=== PATIENT | female | born 1995 | race Caucasian/White ===

== ENCOUNTER → 2017-11-22 | Outpatient (CLI) | payer OTHER ==
[~2017-11-22] MED LIST: SINCALIDE INJ 1.8 MCG in SODIUM CHLORIDE 0.9% 100ML 100 ML IV ONE
--- NOTE | 2017-11-22 15:44 | DIAGNOSTIC IMAGING REPORT ---
NUCLEAR MEDICINE HEPATOBILIARY SCAN WITH EJECTION FRACTION HISTORY: EPIGASTRIC PAIN AND NAUSEA COMPARISON: None. TECHNIQUE: Immediately following the intravenous administration of 5.5 mCi Tc-99m Choletec, dynamic anterior abdominal imaging pre/post 1 mcg of Kinevac was performed. FINDINGS: Uniform hepatic tracer accumulation is shown. Prompt intrahepatic biliary excretion is seen. The gallbladder, common bile duct, and small bowel are all visualized by 45 minutes. This appearance represents the normal sequence of biliary excretion. The gall bladder ejection fraction following administration of Kinevac was 32% (normal >35%). IMPRESSION: 1. No evidence for cystic duct obstruction. 2. Gallbladder ejection fraction calculated to be 42 %. Electronically signed by: Lalo Manning M.D. 11/22/2017 3:42 PM Dictated Date/Time: 11/22/2017 3:41 PM
== END | disposition home or self-care (01) ==
LOC: C.NUCL 12:50
PROVIDERS: ATTEND Internal Medicine Gastroenterology
DX: R10.13 Epigastric pain (principal); R11.0 Nausea

== ENCOUNTER 2021-08-11 04:45 | Inpatient (IN) ==
[2021-08-11] MEDS ORDERED: diphenhydrAMINE 50 MG/ML VIAL IV STA (05:07)
[2021-08-11] MEDS ORDERED: KETOROLAC TROMETHAMINE 15 MG/ML VIAL IV STA (05:07)
[2021-08-11] MEDS ORDERED: PROCHLORPERAZINE 1 ML IV ONE (05:07)
--- NOTE | 2021-08-11 05:14 | Emergency Department Note ---
History of Present Illness General Chief complaint: Vomiting Stated complaint: VOMITING Time Seen by Provider: 08/11/21 04:56 History of Present Illness This is a 25-year-old female with a history significant for that of cyclic vomiting syndrome that presents to the emergency department via private vehicle with complaints of "vomiting". The patient notes that this is her fifth ER visit in the past 1 to 2 weeks. She was seen 3 times at [place] [facility] emergency department being this past Sunday, Sunday and Sunday followed by an ED visit here yesterday and now again today. She states that she has tried her at home medications without relief. She denies any fevers, chills or diarrhea. No constipation. No blood in the vomit. No blood in the stool. The patient states that she has had similar symptoms intermittently for the past 3 years however over the past week and a half have seemed to have worsened. Patient does note that she has had a full work-up to include CT scan of the abdomen and pelvis at [facility]. After she was discharged from here yesterday she was feeling much better however was not able to tolerate any p.o. food or fluids at home and presented here again for further evaluation and management. In addition to the vomiting patient also notes some epigastric abdominal discomfort that worsens after she vomits. No chest pain or shortness of breath. Home Medications Medication Instructions Recorded Confirmed Type cholecalciferol (vitamin D3) 50 50 mcg PO DAILY #90 cap 10/12/20 08/11/21 Rx mcg (2,000 unit) capsule mecobalamin (vitamin B12) 1,000 1,000 mcg PO DAILY #90 tab 10/12/20 08/11/21 Rx mcg chewable tablet promethazine 25 mg rectal 25 mg MO Q8H PRN #12 ea 12/16/20 08/11/21 Rx suppository levothyroxine 50 mcg tablet 50 mcg PO DAILY #30 tab 05/11/21 08/11/21 Rx dicyclomine 20 mg tablet 20 mg PO DAILY PRN 08/10/21 08/11/21 History famotidine 20 mg tablet 20 mg PO DAILY 08/10/21 08/11/21 History lorazepam 1 mg tablet 1 mg PO TID PRN #6 tab 08/10/21 08/11/21 Rx ondansetron 4 mg disintegrating 4 mg PO Q6H PRN #20 tab 08/10/21 08/11/21 Rx tablet prochlorperazine maleate 5 mg 5 mg PO DAILY PRN 08/10/21 08/11/21 History tablet Allergies Allergy/AdvReac Type Severity Reaction Status Date / Time Sulfa (Sulfonamide Allergy Unknown UNKNOWN Verified 08/11/21 07:25 Antibiotics) Past Med/Surg History Medical History Headache Nausea and vomiting Vaginal discharge Surgical History H/O oral surgery Family History Grandfather (Paternal) Colorectal cancer Father Hypertension Thyroid cancer Stroke Grandmother (Maternal) Diabetes Other Breast cancer Denies family history of Ovarian cancer Prostate cancer Myocardial infarction Social History Smoking Status: Never smoker Tobacco Type: E-cigarettes / Vaping Cigarettes Per Day: 1 pack every 3days; Hx Alcohol Use: Yes Hx Substance Use: Yes Last Used Substance: Days (ago) Last Used Substance Other:: 3 weeks ago Preferred Language: Mauritanian Communication Ability: Effective Logistics And Planning Manager Required: No Beliefs That Will Affect Care: None marital status: Single Current Living Situation: Alone current occupational status: employed How many Children do You have: 0 Feels Safe at Home: No Safety Concerns: Feels Safe At This Time Dental Care, Regularly: Yes Physical Activity Frequency: 1-2 Times per Week Seatbelt Use: always Sunscreen Use: Yes Review of Systems A total of 10 systems reviewed and were otherwise negative Physical Exam Vital Signs Vital Signs - 24 hr 08/11/21 04:50 08/11/21 05:53 08/11/21 06:21 Temperature 37 C 37.3 C Temperature Source Temporal Artery Scan Oral Pulse Rate 93 H Pulse Rate [Finger] 78 82 Respiratory Rate 18 20 18 Respiratory Effort / Characteristics Non-Labored Spontaneous Non-Labored Spontaneous Respiratory Depth Shallow Normal Normal Blood Pressure 165/95 H Blood Pressure [Left Arm] 150/78 H 156/89 H Blood Pressure Mean 118 Blood Pressure Mean [Left Arm] 102 111 Pulse Oximetry 97 98 97 Oxygen Delivery Method Room Air Room Air Room Air Sepsis Recent Fever Within 48 Hours No Sepsis New/Unexplained Change in Mental Status No Sepsis Action Taken by Nursing No Action Required 08/11/21 08:38 08/11/21 08:42 Temperature Temperature Source Pulse Rate Pulse Rate [Finger] 82 81 Respiratory Rate 16 18 Respiratory Effort / Characteristics Non-Labored Respiratory Depth Normal Normal Blood Pressure Blood Pressure [Left Arm] 152/82 H 110/71 Blood Pressure Mean Blood Pressure Mean [Left Arm] 105 84 Pulse Oximetry 96 99 Oxygen Delivery Method Room Air Room Air Sepsis Recent Fever Within 48 Hours Sepsis New/Unexplained Change in Mental Status Sepsis Action Taken by Nursing VITAL SIGNS - Vital signs and nursing notes were reviewed. Stable and afebrile. GENERAL -25-year-old female appearing her stated age who is in no acute distress but appears to be tired. Communicates well with provider and answers questions appropriately. SKIN - Without rashes. No meningeal or petechial rash. HEAD - NC/AT. EYES - Sclera anicteric. EARS - No deformities of external structures noted on gross examination bilaterally. NOSE - Midline and without cyanosis. No epistaxis or purulent drainage noted. Septum midline without deviation or septal hematoma noted. MOUTH/OROPHARYNX - Without perioral cyanosis. NECK - Neck with FROM. No nuchal rigidity. LUNGS - Chest wall symmetric without accessory muscle use, intercostals retractions, or central cyanosis. Normal vesicular breath sounds CTA B/L. No wheezes, rales, or rhonchi appreciated. CARDIAC - RRR with S1/S2. No murmur, rubs, or gallops appreciated. ABDOMEN - Abdominal contour normal without pulsations or visible masses. BS normoactive all four quadrants. No tenderness, palpable masses, hepatosplenomega ly, or ascites noted. EXTREMITIES - No clubbing or peripheral cyanosis. +5/5 strength noted in UE/LE bilaterally. NEUROLOGIC - Cranial nerves II through XII grossly intact. PSYCH - A&O, and cooperates fully with examiner. Pt is very pleasant and interacts well with examiner. Course Administered Medications Cyanocobalamin (Cyanocobalamin 500 Mcg Tablet (Vitamin B-12)) 1,000 mcg PO DAILY VÍCTOR Stop: 09/10/21 11:29 Last Admin: 08/11/21 15:04 Dose: Not Given Documented by: [id number] Dicyclomine HCl (Dicyclomine Hcl 20 Mg Tab) 20 mg PO DAILY PRN PRN Reason: Abdominal Discomfort Stop: 09/10/21 11:08 Last Admin: 08/11/21 12:33 Dose: 20 mg Documented by: [id number] Enoxaparin Sodium (Enoxaparin Inj 40 Mg/0.4 Ml Syr) 40 mg SQ QAM [facility] Stop: 09/10/21 11:29 Last Admin: 08/11/21 15:02 Dose: 40 mg Documented by: [id number] Potassium Chloride 10 meq/ (Sodium Chloride) 1,005 mls @ 100 mls/hr IV .Q10H3M [facility] Stop: 09/10/21 08:59 Last Admin: 08/11/21 18:35 Dose: 100 mls/hr Documented by: [id number] Infusion: 08/11/21 18:35 Dose: 100 mls/hr Documented by: [id number] Admin: 08/11/21 09:35 Dose: 100 mls/hr Documented by: [id number] Prochlorperazine 5 mg/ Syringe 5 mls @ 5 mls/min IV Q6H PRN PRN Reason: Nausea And Vomiting Stop: 09/10/21 14:42 Last Admin: 08/11/21 16:24 Dose: 5 mls/min Documented by: [id number] Famotidine 20 mg/ Syringe 5 mls @ 2.5 mls/min IV BID [facility] Stop: 09/10/21 20:59 Last Admin: 08/11/21 20:56 Dose: 2.5 mls/min Documented by: [id number] Acetaminophen (Ofirmev) 1,000 mg in 100 mls @ 400 mls/hr IV Q8H PRN PRN Reason: Pain Stop: 08/14/21 16:36 Last Infusion: 08/11/21 17:06 Dose: 0 mls/hr Documented by: [id number] Admin: 08/11/21 16:51 Dose: 400 mls/hr Documented by: [id number] Ketorolac Tromethamine (Ketorolac Tromethamine 15 Mg/Ml Vial) 15 mg IV Q6H PRN PRN Reason: Pain Stop: 08/16/21 14:42 Last Admin: 08/11/21 15:01 Dose: 15 mg Documented by: [id number] Levothyroxine Sodium (Levothyroxine Sodium 50 Mcg Tablet) 50 mcg PO DAILYBB [facility] Stop: 09/10/21 11:08 Last Admin: 08/11/21 15:04 Dose: Not Given Documented by: [id number] Lorazepam (Lorazepam 1 Mg Tab) 1 mg PO TID PRN PRN Reason: anxiety Stop: 09/10/21 11:16 Last Admin: 08/11/21 19:32 Dose: 1 mg Documented by: [id number] Ondansetron HCl (Ondansetron Inj 2 Mg/Ml 2 Ml Vial) 4 mg IV Q6H PRN PRN Reason: Nausea And Vomiting Stop: 09/10/21 11:08 Last Admin: 08/11/21 19:32 Dose: 4 mg Documented by: [id number] Admin: 08/11/21 11:51 Dose: 4 mg Documented by: [id number] Vitamin D (Cholecalciferol 1,000 Units 25 Mcg Tab) 2,000 units PO DAILY [facility] Stop: 09/10/21 11:29 Last Admin: 08/11/21 15:04 Dose: Not Given Documented by: [id number] Discontinued Medications Al Hydrox/Mg Hydrox/Simethicone (Gi Cocktail Ed Use) 1 dose PO ONE ONE Stop: 08/11/21 06:07 Last Admin: 08/11/21 06:14 Dose: 1 dose Documented by: [id number] Hydrox/Mg Hydrox/Simethicone (Aluminum/Magnesium Susp 30 Ml Udc) 15 ml PO NOW STA Stop: 08/11/21 14:43 Last Admin: 08/11/21 14:57 Dose: 15 ml Documented by: [id number] Diphenhydramine HCl (Diphenhydramine 50 Mg/Ml Vial) 25 mg IV NOW STA Stop: 08/11/21 05:08 Last Admin: 08/11/21 05:43 Dose: 25 mg Documented by: [id number] Famotidine (Famotidine 20 Mg Tab) 20 mg PO DAILY [facility] Stop: 09/10/21 11:08 Last Admin: 08/11/21 14:50 Dose: Not Given Documented by: [id number] Prochlorperazine (Compazine) 1 mls @ 1 mls/min IV ONE ONE Stop: 08/11/21 05:08 Last Admin: 08/11/21 05:45 Dose: 1 mls/min Documented by: [id number] Sodium Chloride (Nss 1000ml) 1,000 mls @ 999 mls/hr IV .Q1H1M [facility] Stop: 08/11/21 06:15 Last Infusion: 08/11/21 06:55 Dose: 0 mls/hr Documented by: [id number] Admin: 08/11/21 05:48 Dose: 999 mls/hr Documented by: [id number] Famotidine (Pepcid 20mg Iv Push) 20 mg in 5 mls @ 2.5 mls/min IV NOW STA Stop: 08/11/21 06:07 Last Admin: 08/11/21 06:13 Dose: 2.5 mls/min Documented by: [id number] Potassium Chloride (K Kareem / Wtr) 10 meq in 100 mls @ 100 mls/hr IV Q1H [facility] Stop: 08/11/21 09:14 Last Infusion: 08/11/21 11:50 Dose: 0 mls/hr Documented by: [id number] Admin: 08/11/21 09:41 Dose: 100 mls/hr Documented by: [id number] Infusion: 08/11/21 09:29 Dose: 100 mls/hr Documented by: [id number] Admin: 08/11/21 08:29 Dose: 100 mls/hr Documented by: [id number] Potassium Chloride (K Kareem / Wtr) 10 meq in 100 mls @ 100 mls/hr IV ONE ONE Stop: 08/11/21 09:49 Last Infusion: 08/11/21 12:00 Dose: 0 mls/hr Documented by: [id number] Admin: 08/11/21 10:49 Dose: 100 mls/hr Documented by: [id number] Famotidine 20 mg/ Syringe 5 mls @ 2.5 mls/min IV ONE ONE Stop: 08/11/21 15:01 Last Admin: 08/11/21 16:01 Dose: 2.5 mls/min Documented by: [id number] Ketorolac Tromethamine (Ketorolac Tromethamine 15 Mg/Ml Vial) 15 mg IV NOW STA Stop: 08/11/21 05:08 Last Admin: 08/11/21 05:42 Dose: 15 mg Documented by: [id number] Lidocaine HCl (Lidocaine Viscous 2% 15 Ml Udc) 15 ml PO NOW ONE Stop: 08/11/21 14:43 Last Admin: 08/11/21 16:01 Dose: 15 ml Documented by: [id number] Ondansetron HCl (Ondansetron Inj 2 Mg/Ml 2 Ml Vial) 4 mg IV NOW STA Stop: 08/11/21 06:07 Last Admin: 08/11/21 06:17 Dose: 4 mg Documented by: [id number] Ondansetron HCl (Ondansetron Inj 2 Mg/Ml 2 Ml Vial) 4 mg IV ONE ONE Stop: 08/11/21 14:44 Last Admin: 08/11/21 14:57 Dose: 4 mg Documented by: [id number] Medical Decision Making Laboratory Data Result diagrams: 08/11/21 05:34 08/11/21 12:45 Lab Results 08/11/21 08/11/21 08/11/21 Range/Units 05:34 05:34 05:34 WBC 12.91 H (4.8-10.8) K/uL RBC 4.45 (4.2-5.4) M/uL Hgb 13.6 (12.0-16.0) g/dL Hct 40.6 (37-47) % MCV 91.2 (80-100) fL MCH 30.6 (25-34) pg MCHC 33.5 (32-36) g/dL RDW Std Deviation 42.3 (36.4-46.3) fL RDW Coeff of [place]re[place] 12.6 (11.5-14.5) % Plt Count 221 (130-400) K/uL MPV 12.5 H (7.4-10.4) fL Immature Gran % (Auto) 0.4 % Neut % (Auto) 82.0 % Lymph % (Auto) 9.4 % [place] % (Auto) 7.7 % Eos % (Auto) 0.3 % Baso % (Auto) 0.2 % Neut # (Auto) 10.58 H (1.4-6.5) K/uL Lymph # (Auto) 1.21 (1.2-3.4) K/uL [place] # (Auto) 1.00 H (0.11-0.59) K/uL Eos # (Auto) 0.04 (0-0.5) K/uL Baso # (Auto) 0.03 (0-0.2) K/uL Immature Gran # (Auto) 0.05 H (0.00-0.02) K/uL Sodium 141 (136-145) mmol/L Potassium 2.7 L D (3.5-5.1) mmol/L Chloride 113 H (98-107) mmol/L Carbon Dioxide 22 (21-32) mmol/L Anion Gap 6.0 (3-11) BUN 9 (7-18) mg/dl Creatinine 0.61 (0.6-1.2) mg/dl Est Cr Clr Drug Dosing 147.9 ml/min Est GFR ( Amer) 145.0 ml/min Est GFR (Non-Af Amer) 125.1 ml/min BUN/Creatinine Ratio 14.1 (10-20) Glucose 87 (70-99) mg/dl Calcium 7.0 L D (8.5-10.1) mg/dl Magnesium 1.8 (1.8-2.4) mg/dl Total Bilirubin 0.5 (0.2-1) mg/dl AST 20 (15-37) U/L ALT 37 (12-78) Alkaline Phosphatase 34 L (45-117) U/L Troponin I < 0.015 (0-0.045) ng/ml Total Protein 5.9 L D (6.4-8.2) gm/dl Albumin 2.8 L (3.4-5.0) gm/dl Globulin 3.1 (2.5-4.0) gm/dl Albumin/Globulin Ratio 0.9 (0.9-2) Lipase 91 (73-393) U/L TSH 2.800 (0.300-4.500) uIu/ml HCG, Qual Negative (Negative) SARS-CoV-2 (PCR) (Negative) Influenza Type A (PCR) (Neg) Influenza Type B (PCR) (Neg) RSV (RT-PCR) (Neg) 08/11/21 Range/Units 05:34 WBC (4.8-10.8) K/uL RBC (4.2-5.4) M/uL Hgb (12.0-16.0) g/dL Hct (37-47) % MCV (80-100) fL MCH (25-34) pg MCHC (32-36) g/dL RDW Std Deviation (36.4-46.3) fL RDW Coeff of [place] (11.5-14.5) % Plt Count (130-400) K/uL MPV (7.4-10.4) fL Immature Gran % (Auto) % Neut % (Auto) % Lymph % (Auto) % [place] % (Auto) % Eos % (Auto) % Baso % (Auto) % Neut # (Auto) (1.4-6.5) K/uL Lymph # (Auto) (1.2-3.4) K/uL [place] # (Auto) (0.11-0.59) K/uL Eos # (Auto) (0-0.5) K/uL Baso # (Auto) (0-0.2) K/uL Immature Gran # (Auto) (0.00-0.02) K/uL Sodium (136-145) mmol/L Potassium (3.5-5.1) mmol/L Chloride (98-107) mmol/L Carbon Dioxide (21-32) mmol/L Anion Gap (3-11) BUN (7-18) mg/dl Creatinine (0.6-1.2) mg/dl Est Cr Clr Drug Dosing ml/min Est GFR ( Amer) ml/min Est GFR (Non-Af Amer) ml/min BUN/Creatinine Ratio (10-20) Glucose (70-99) mg/dl Calcium (8.5-10.1) mg/dl Magnesium (1.8-2.4) mg/dl Total Bilirubin (0.2-1) mg/dl AST (15-37) U/L ALT (12-78) Alkaline Phosphatase (45-117) U/L Troponin I (0-0.045) ng/ml Total Protein (6.4-8.2) gm/dl Albumin (3.4-5.0) gm/dl Globulin (2.5-4.0) gm/dl Albumin/Globulin Ratio (0.9-2) Lipase (73-393) U/L TSH (0.300-4.500) uIu/ml HCG, Qual (Negative) SARS-CoV-2 (PCR) NEGATIVE (Negative) Influenza Type A (PCR) Negative (Neg) Influenza Type B (PCR) Negative (Neg) RSV (RT-PCR) Negative (Neg) MDM Narrative Patient was seen and evaluated as above in room C 12. Review was performed of nursing notes and vital signs. I did review pertinent previous visits and patient history. After obtaining a thorough history and physical examination the above work up was performed. Patient presents to us today with vomiting. Patient notes that she has a history of cyclic vomiting syndrome. On my examination the patient is tired in appearance but overall nontoxic. Vital signs stable. No active vomiting. Patient also notes that she does smoke marijuana, last of which was 3 weeks ago. She has been to the emergency department several times over the past week and a half. This is her fifth emergency department visit in a week and a half. Options of care were discussed with the patient. IV access was established. Labs were drawn. She was given IV fluids, antiemetics and IV Toradol for her pain. She is reevaluated with mild improvement. Pepcid and GI cocktail were then ordered. Patient's laboratory studies reveal mild leukocytosis 12.91. No anemia. There is hypokalemia which is interval change compared to previous. No other emergent metabolic disturbance. hCG negative. Troponin normal. Urinalysis is likely a contaminated sample. An EKG was also obtained noting the recent antiemetic use. EKG reveals normal sinus rhythm at a rate of 81 bpm. QTc 434. QRS 82. No ST elevation. No previous EKGs for comparison. With the patient having persistent nausea and vomiting despite several emergency department visits where she received antiemetics as well as antiemetics at home now with interval change with hypokalemia at 2.7 I do believe that further evaluation and management in the inpatient setting is warranted. I did order 20 meq of potassium chloride to be given at the normal rate. Case discussed with the hospitalist. Please refer to further documentation regarding her stay. Case was discussed with the attending physician. GCS: 15 In the evaluation and treatment of this patient the following differential diagn oses were entertained: UTI, pyelonephritis, perforation, pancreatitis, esophageal perforation, ulcer, cyclic vomiting syndrome, among others. Impression & Plan Vomiting, Hypokalemia Discharge Plan Visit Data Chief Complaint: Vomiting Stated Complaint: VOMITING ED Provider: Orin Holman ED Midlevel Provider: Ned Young Discharge Problem: Vomiting, Hypokalemia Patient Disposition: Admitted As Inpatient Condition: Good Discharge Instructions Interventions: ED Discharge Assessment Last Done: 08/11/21 11:28
[2021-08-11] MEDS ORDERED: SODIUM CHLORIDE 0.9% 1000ML 1,000 ML IV SCH (05:15)
[2021-08-11 05:51] LABS: Basophils # (auto) 0.03 K/uL (0-0.2); Basophils % (auto) 0.2 %; Eosinophils # (auto) 0.04 K/uL (0-0.5); Eosinophils % (auto) 0.3 %; Hematocrit (blood only) 40.6 % (37-47); Hemoglobin 13.6 g/dL (12.0-16.0); Immature Granulocytes # (auto) 0.05 K/uL (0.00-0.02); Immature Granulocytes % (auto) 0.4 %; Lymphocytes # (auto) 1.21 K/uL (1.2-3.4); Lymphocytes % (auto) 9.4 %; Mean Corpuscular Hemoglobin 30.6 pg (25-34); Mean Corpuscular Hgb Conc 33.5 g/dL (32-36); Mean Corpuscular Volume 91.2 fL (80-100); Mean Platelet Volume 12.5 fL (7.4-10.4); Monocytes % (auto) 7.7 %; Neutrophils # (auto) 10.58 K/uL (1.4-6.5); Platelet Count 221 K/uL (130-400); RDW Coefficient of Variation 12.6 % (11.5-14.5); RDW Standard Deviation 42.3 fL (36.4-46.3); Red Blood Count 4.45 M/uL (4.2-5.4); White Blood Count 12.91 K/uL (4.8-10.8)
[2021-08-11] MEDS ORDERED: ONDANSETRON INJ 2 MG/ML 2 ML VIAL IV STA (06:06)
[2021-08-11] MEDS ORDERED: FAMOTIDINE 20MG IV PUSH 20 MG/5 ML SYR IV STA (06:06)
[2021-08-11] MEDS ORDERED: GI COCKTAIL ED USE PO ONE (06:06)
[2021-08-11 06:14] LABS: Alanine Aminotransferase 37 (12-78); Albumin Level 2.8 gm/dl (3.4-5.0); Aspartate Aminotransferase 20 U/L (15-37); BUN Creatinine Ratio 14.1 (10-20); Blood Urea Nitrogen 9 mg/dl (7-18); Carbon Dioxide 22 mmol/L (21-32); Chloride 113 mmol/L (98-107); Creatinine Clr Calc Pharmacy 147.9 ml/min; Est GFR (Non-African American) 125.1 ml/min; Glucose 87 mg/dl (70-99); Lipase 91 U/L (73-393); Magnesium 1.8 mg/dl (1.8-2.4); Potassium 2.7 mmol/L (3.5-5.1); Sodium 141 mmol/L (136-145)
[2021-08-11 06:33] LABS: Influenza A virus by PCR Negative (Neg); Influenza B virus by PCR Negative (Neg); RSV by PCR Negative (Neg); SARS CoV2 RNA(COVID-19) InHosp NEGATIVE (Negative)
[2021-08-11 06:40] LABS: Albumin Globulin Ratio 0.9 (0.9-2); Alkaline Phosphatase 34 U/L (45-117); Bilirubin,Total 0.5 mg/dl (0.2-1); Globulin 3.1 gm/dl (2.5-4.0); Total Protein 5.9 gm/dl (6.4-8.2); Troponin I < 0.015 ng/ml (0-0.045)
[2021-08-11 06:48] LABS: Pregnancy Test, Serum Negative (Negative)
--- NOTE | 2021-08-11 08:11 | XRay Report ---
XR abdomen 2V w PA chest HISTORY: 25 years-old Female emesis, epigastric abd pain acute chest and abdominal pain with nausea and vomiting COMPARISON: None TECHNIQUE: PA view the chest with erect and supine views of the abdomen FINDINGS: The cardiomediastinal and hilar silhouettes are within normal limits. There is no pneumothorax, pleur al effusion, airspace consolidation or overt pulmonary edema. No acute fracture. No pneumatosis or pneumoperitoneum. Bowel gas pattern is nonobstructive. Pelvic basin phleboliths. No urolith or acute fracture. IMPRESSION: 1. No acute processes of the chest. 2. Nonobstructive bowel gas pattern. ACT 112: Negative or not required by law. The above report was generated using voice recognition software. It may contain grammatical, syntax o r spelling errors. Electronically signed by: Steven Yarbrough M.D. 08/11/2021 8:10 AM
[2021-08-11] MEDS: POTASSIUM CHLORIDE / WTR 10 MEQ/100 ML PLCT IV SCH ×2 (08:29→09:41)
--- NOTE | 2021-08-11 08:29 | History & Physical Report ---
Date of Service August 11, 2021 Assessment & Plan (1) Cyclic vomiting syndrome: Plan: Due to the patient's ongoing symptoms she will be admitted to the hospital. We will proceed as follows: At the present time her care will be mostly supportive at this time Antiemetics will be provided We will hydrate her with IV fluids We will allow clear liquids and subsequently advance her diet as she is able to tolerate At the present time I not feel any other diagnostic studies are warranted. She has had a CT scan recently at [facility] without any significant pathology. There are no other physical exam findings suggestive of additional pathology such as cholecystitis. Patient did report melanotic stools to me however I did talk with the treating emergency room clinician who saw her yesterday and the patient did undergo a rectal exam with fecal occult blood which was negative. Her melanotic appearing stools may be due to antacid she was reportedly taking. In addition, the patient may be suffering from an element of cannabis hyperemesis syndrome as she does smoke marijuana and her toxicology screen is positive. She has reported that her symptoms improve when taking a hot shower which goes along with this element of her current presentation. I have been encouraged her to abstain from marijuana use. Patient be a level 1 full code We will use Lovenox for DVT prevention (2) Hypokalemia: Plan: We will supplement her potassium Serial labs will be followed History of Present Illness Chief Complaint: Nausea and vomiting Primary Care Provider: Martha Tillman MD This is a 25-year-old female who presented to [facility] emergency department secondary to uncontrolled nausea vomiting. Patient notes that she was diagnosed with cyclic vomiting syndrome approximately 1 year ago. She said that her symptoms come and go in and on peritoneal fashion that she can sometimes go weeks or months at a time without any symptomatology. She notes that her current presentation began approximately 1 week ago with nausea vomiting and unable to keep any oral intake down. She denies any fevers, shakes, chills. She does note some generalized abdominal pain but admits it is worst in the epigastric area. She notes that the pain is better when she takes a hot shower and she says that the pain is worse when she throws up. She denies any hematemesis. The patient does report intermittent melanotic stools. Patient says that in regards to her cyclic vomiting syndrome she has had both an upper and lower endoscopy and to the best of her knowledge this was without any significant pathology. She says she is also had CT scans of her abdomen as well as gallbladder ultrasound also which were negative for any significant pathology. Prior to her presentation to [facility] she was most recently seen in the emergency department at [facility] on 08-23. During this visit she did have an obstruction series which was negative and she also had a CT scan of her abdomen and pelvis that showed findings that may have been consistent with enteritis but no other significant findings were noted. She denies any history abdominal surgeries or any diabetes. The patient does admit to marijuana use but reports that her most recent use was approximately 3 weeks ago. Because of her continued symptoms she presented to the emergency department. Patient was actually seen at [facility] on 08/10/2021 which was yesterday. During this visit CBC showed her white blood cell count was 12.1. Her hemoglobin, hematocrit, and platelet count were all noted to be normal. During this visit a chemistry profile showed her sodium, potassium, BUN, and creatinine were all within the normal range. She had a urinalysis that was not indicative of infection and a negative test. She did have a toxicology screen that was noted to be positive for marijuana. The patient's symptoms were controlled during that emergency room visit and she was discharged home. She represented to the emergency department as noted above secondary to continued symptoms. Today in the emergency department she did have labs and imaging which independent reviewed. She did have an obstruction series that showed a normal bowel gas pattern and there is no free air noted on chest x-ray. There is also no evidence of pneumonia. Labs today include a CBC her white blood cell count is 12.9. Hemoglobin, hematocrit, and platelet count were all within the normal range. Chemistry profile showed her sodium was normal. Her potassium is low at 2.7. Her BUN and creatinine were noted to be normal. Magnesium is noted to be normal. Cardiac enzymes were checked and were nonelevated. His total protein and albumin were both low at 5.9 and 2.8 respectively. Her lipase is within the normal range. She also had a test checked again today which was negative. A TSH was noted to be within normal range. A Covid test was performed today which was noted to be negative. She was also checked for influenza type a and B along with RSV all of which were negative. Due to her ongoing symptoms the clinicians in the emergency department felt admission was warranted. At the time of my interview the patient did not appear to be in any distress. Allergies Allergy/AdvReac Type Severity Reaction Status Date / Time Sulfa (Sulfonamide Allergy Unknown UNKNOWN Verified 08/11/21 07:25 Antibiotics) Home Medications Medication Instructions Recorded Confirmed Type cholecalciferol (vitamin D3) 50 50 mcg PO DAILY #90 cap 10/12/20 08/11/21 Rx mcg (2,000 unit) capsule mecobalamin (vitamin B12) 1,000 1,000 mcg PO DAILY #90 tab 10/12/20 08/11/21 Rx mcg chewable tablet promethazine 25 mg rectal 25 mg MO Q8H PRN #12 ea 12/16/20 08/11/21 Rx suppository levothyroxine 50 mcg tablet 50 mcg PO DAILY #30 tab 05/11/21 08/11/21 Rx dicyclomine 20 mg tablet 20 mg PO DAILY PRN 08/10/21 08/11/21 History famotidine 20 mg tablet 20 mg PO DAILY 08/10/21 08/11/21 History lorazepam 1 mg tablet 1 mg PO TID PRN #6 tab 08/10/21 08/11/21 Rx ondansetron 4 mg disintegrating 4 mg PO Q6H PRN #20 tab 08/10/21 08/11/21 Rx tablet prochlorperazine maleate 5 mg 5 mg PO DAILY PRN 08/10/21 08/11/21 History tablet Past Med/Surg History Medical History Headache Nausea and vomiting Vaginal discharge Surgical History H/O oral surgery Family History Grandfather (Paternal) Colorectal cancer Father Hypertension Thyroid cancer Stroke Grandmother (Maternal) Diabetes Other Breast cancer Denies family history of Ovarian cancer Prostate cancer Myocardial infarction Social History Smoking Status: Never smoker Tobacco Type: E-cigarettes / Vaping Cigarettes Per Day: 1 pack every 3days; Hx Alcohol Use: Yes Hx Substance Use: Yes Last Used Substance: Days (ago) Last Used Substance Other:: 3 weeks ago Preferred Language: Northern Irish Communication Ability: Effective Gravity Prospecting Operator Required: No Beliefs That Will Affect Care: None marital status: Single Current Living Situation: Alone current occupational status: employed How many Children do You have: 0 Feels Safe at Home: No Safety Concerns: Feels Safe At This Time Dental Care, Regularly: Yes Physical Activity Frequency: 1-2 Times per Week Seatbelt Use: always Sunscreen Use: Yes Review of Systems Constitutional: + fatigue and + malaise; no fever and no chills Eyes: no blind spots Ear, Nose, Mouth, Throat: no ear pain and no hearing loss Respiratory: no cough and no dyspnea Cardiovascular: no chest pain Gastrointestinal: + abdominal pain, + nausea, + vomiting and + melena; no diarrhea/loose stools Genitourinary: no dysuria Musculoskeletal: no back pain Integumentary: no rash Neurologic: no localized weakness Physical Exam Constitutional: well developed, well nourished and cooperative; no acute distress Eyes: PERRL, conjunctivae normal, anicteric sclerae Wears glasses ENMT: Ears: no hearing impairment and no external ear abnormality Mucous membranes of her oropharynx are moist Neck: trachea midline Respiratory: normal respiratory effort, lungs clear to auscultation Cardiovascular: Rate/Rhythm: regular rate and regular rhythm Gastrointestinal (Abdomen): Abdomen is soft and nondistended. Bowel sounds are present. There is no rebound tenderness or guarding. There is no pain with palpation. Andrea sign is negative. Musculoskeletal: Radial and pedal pulses are palpable. No gross orthopedic abnormalities. No calf tenderness Skin: normal turgor Neurologic: moves all extremities Psychiatric: Orientation: alert and oriented x 3 Affect: + flat affect Results & Data Results & Data ([facility]) Vital Signs (Past 12 Hours) Vital Signs Temp Pulse Pulse Resp BP BP Pulse Ox 08/11/21 06:21 37.3 C 82 18 156/89 H 97 08/11/21 05:53 78 20 150/78 H 98 08/11/21 04:50 37 C 93 H 18 165/95 H 97 Supervising Physician Co-Signing Physician Notes I personally examined the patient and verified all vance points of history and exam, discussed case, and agree with decision making with B Phoenix PAC Saw multiple times today, whenever I first saw her she was eating a little bit of sherbet, and noted this was the first and days her stomach and growled, but whenever I revisited later, unfortunately she had vomited again and was having more nausea. Notes she was diagnosed with cyclic vomiting by an ER physician in [place], off of pattern recognition given that apparently the physician's daughter also unfortunately suffers from the same thing. However, patient has smoked marijuana (intermittently not chronically or daily) since probably 15 years oldand she was first starting to have suffering with her GI distress around may be age 20 or 21. Vitals noted, in general she is awake and alert pleasant no distress. HEENT normocephalic atraumatic mucous membranes moist. Breathing unlabored no accessory muscle use good effort. Skin shows no rashes no pallor or icterus. Neuro without focal deficits. Skin shows no rashes no pallor or icterus. Intractable nausea and vomiting -Working diagnosis of cyclic vomiting syndrome -Discussed with patient cannabis hyperemesis cannot entirely be ruled out, and honestly that would be a favorable diagnosis compared to cyclic vomiting which is ill understood and does not necessarily have a specific remedyto that end, it has been several weeks to a month since she last smoked marijuana, and I discussed that it can sometimes take several months for cannabis hyperemesis to improve with abstinenceto that end, we agreed that she would completely refrain from marijuana until at least November 01 to be able to see if she has clinical improvement -Will also want to evaluate for abdominal trigger points, although in my experience this tends to lead to a lot of nausea and abdominal pain but not as much vomiting; did not examine for that today given that I have to push relatively hard and her stomach was somewhat tender -IV fluids, antiemetics, pain control, supportive care PG Care Time/CCT Total # of Minutes Spent Total Time Spent with Patient: Total time spent is greater than 50% in coordination of care (as documented) at patient's floor/unit and/or counseling patient: Coding Level of Care Code INT OBSERVATION CARE 70M LVL 3 Diagnoses Cyclic vomiting syndrome R11.15 Hypokalemia E87.6
[2021-08-11] MEDS ORDERED: POTASSIUM CHLORIDE / WTR 10 MEQ/100 ML PLCT IV ONE (08:50)
[2021-08-11] MEDS: POTASSIUM CHLORIDE 10 MEQ in SODIUM CHLORIDE 0.9% 1000ML 1,000 ML IV SCH ×2 (09:35→18:35)
[2021-08-11 10:59] LABS: Appearance Urine Turbid (Clear); Bacteria Urine Automated 2+ (Negative); Bilirubin Urine Negative (Negative); Blood Urine Negative (Negative); Color Urine Yellow; Epithelial Cell Urine Auto >30 /lpf (0-5); Glucose Urine UA Negative (Negative); Ketones Urine 1+ (Negative); Leukocyte Esterase Urine 1+ (Negative); Nitrite Urine Negative (Negative); Protein Urine Negative (Negative); Urobilinogen Urine Negative (Negative)
[2021-08-11] MEDS ORDERED: FAMOTIDINE 20 MG TAB PO SCH (11:09)
[2021-08-11] MEDS ORDERED: PROCHLORPERAZINE MALEATE 5 MG TAB PO PRN (11:09)
[2021-08-11 11:30] LABS: Amphetamines+Metham, Urine Neg (Neg); Barbiturates, Urine Pos (Neg); Benzodiazepine, Urine Neg (Neg); Cocaine, Urine Neg (Neg); MDMA (Ecstacy), Urine Neg (Neg); Methadone, Urine Neg (Neg); Opiate, Urine Neg (Neg); Phencyclidine, Urine Neg (Neg)
[2021-08-11] MEDS: ONDANSETRON INJ 2 MG/ML 2 ML VIAL IV PRN ×2 (11:51→19:32)
[2021-08-11] MEDS: DICYCLOMINE HCL 20 MG TAB PO PRN (12:33)
[2021-08-11 13:25] LABS: Calcium 8.7 mg/dl (8.5-10.1); Creatinine Clr Calc Pharmacy 106.1 ml/min; Est GFR (African American) 109.6 ml/min; Est GFR (Non-African American) 94.6 ml/min; Potassium 3.9 mmol/L (3.5-5.1)
[2021-08-11] MEDS ORDERED: LIDOCAINE VISCOUS 2% 15 ML UDC PO ONE (14:42)
[2021-08-11] MEDS ORDERED: ALUMINUM/MAGNESIUM SUSP 30 ML UDC PO STA (14:42)
[2021-08-11] MEDS ORDERED: ONDANSETRON INJ 2 MG/ML 2 ML VIAL IV ONE (14:43)
[2021-08-11] MEDS ORDERED: FAMOTIDINE 20 MG in SYRINGE 3 ML IV ONE (15:00)
[2021-08-11] MEDS: KETOROLAC TROMETHAMINE 15 MG/ML VIAL IV PRN ×2 (15:01→22:35)
[2021-08-11] MEDS: ENOXAPARIN INJ 40 MG/0.4 ML SYR SQ SCH (15:02)
[2021-08-11] MEDS: LEVOTHYROXINE SODIUM 50 MCG TABLET PO SCH (15:04)
[2021-08-11] MEDS: CYANOCOBALAMIN 500 MCG TABLET (VITAMIN B-12) PO SCH (15:04)
[2021-08-11] MEDS: CHOLECALCIFEROL 1,000 UNITS 25 MCG TAB PO SCH (15:04)
[2021-08-11] MEDS: PROCHLORPERAZINE 5 MG in SYRINGE 4 ML IV PRN (16:24)
[2021-08-11] MEDS: ACETAMINOPHEN 1,000 MG/100 ML VIAL IV PRN (16:51)
[2021-08-11] MEDS: LORazepam 1 MG TAB PO PRN (19:32)
[2021-08-11] MEDS: FAMOTIDINE 20 MG in SYRINGE 3 ML IV SCH (20:56)
--- NOTE | 2021-08-11 22:32 | Electrocardiogram Report ---
Test Reason : Blood Pressure : / mmHG Vent. Rate : 081 BPM Atrial Rate : 081 BPM P-R Int : 152 ms QRS Dur : 082 ms QT Int : 374 ms P-R-T Axes : 054 036 026 degrees QTc Int : 434 ms Normal sinus rhythm Cannot rule out Anterior infarct , age undetermined Abnormal ECG No previous ECGs available Confirmed by Yohan Villagomez ([id number]) on 08/11/2021 10:32:28 PM Referred By: REFERRED SELF Confirmed By:Yohan Villagomez
[2021-08-12] MEDS: POTASSIUM CHLORIDE 10 MEQ in SODIUM CHLORIDE 0.9% 1000ML 1,000 ML IV SCH ×2 (04:30→14:38)
[2021-08-12] MEDS: ONDANSETRON INJ 2 MG/ML 2 ML VIAL IV PRN ×2 (04:47→11:53)
[2021-08-12] MEDS: KETOROLAC TROMETHAMINE 15 MG/ML VIAL IV PRN ×2 (05:25→11:52)
[2021-08-12] MEDS: LEVOTHYROXINE SODIUM 50 MCG TABLET PO SCH (05:35)
[2021-08-12] MEDS: PROCHLORPERAZINE 5 MG in SYRINGE 4 ML IV PRN ×2 (05:59→12:37)
[2021-08-12] MEDS ORDERED: diphenhydrAMINE 50 MG/ML VIAL IV ONE (06:16)
[2021-08-12] MEDS: PROMETHAZINE HCL 6.25 MG in SODIUM CHLORIDE 0.9% 50 ML IV PRN (08:02)
[2021-08-12] MEDS: ACETAMINOPHEN 1,000 MG/100 ML VIAL IV PRN (09:01)
[2021-08-12] MEDS: CYANOCOBALAMIN 500 MCG TABLET (VITAMIN B-12) PO SCH (13:34)
[2021-08-12] MEDS: CHOLECALCIFEROL 1,000 UNITS 25 MCG TAB PO SCH (13:34)
[2021-08-12] MEDS: FAMOTIDINE 20 MG in SYRINGE 3 ML IV SCH ×2 (13:34→21:51)
[2021-08-12] MEDS: ENOXAPARIN INJ 40 MG/0.4 ML SYR SQ SCH (13:34)
[2021-08-12] MEDS ORDERED: ALUMINUM/MAGNESIUM SUSP 30 ML UDC PO STA (16:37)
--- NOTE | 2021-08-12 16:41 | Hospitalist Progress Note ---
Date of Service August 12, 2021 Assessment & Plan (1) Hypokalemia: Plan: We will supplement her potassium Serial labs will be followed (2) Intractable nausea and vomiting: Plan: Still fairly badcontinue supportive care IV fluids and symptom management -Has a working diagnosis of cyclic vomiting, although she notes that this was made based on pattern recognition from an ER physician whose daughter has cyclic vomiting; this certainly would be our working diagnosis, but by no means definitively proven -I do wonder about the potential for some elements of cannabis hyperemesispatient and I discussed this, the case for this would be that she did start smoking marijuana years prior to her symptom onset, the case against would be it does not sound like she smokes with a heavy degree of frequency. That said this can be difficult to rule outwe agreed that she should abstain from marijuana for several months, given that it can take quite a while for cannabis hyperemesis to resolve -She does have left upper abdominal wall trigger pointscertainly those can cause a somatic visceral reflex causing abdominal pain that mimics visceral abdominal pain; and definitely severe nausea, and not clear if they could cause the vomiting, but it certainly plausible. At any rate, given the trigger points are there and quite present, even if they are not the cause of her whole syndrome, they certainly are likely a "spinoff" problem keeping the nausea and abdominal pain worse --> Nausea control, pain control, IV fluids --> Outpatient follow-up with PCP, and GI (home once symptoms are tolerable/able to eat and drink) ---> Voltaren gel 4 times daily to area of trigger points, and referral to pain management to have ultrasound-guided injections as an outpatient DVT [facility] Admission and Anticipated Discharge Date Admission Date: August 11, 2021 Subjective Feeling nausea still a good bit. Has not been able to eat much. Vomited a few times. No other new complaints. Toradol actually help with the nausea too. Review of Systems Review of Systems: All systems reviewed & are unremarkable except as noted in HPI & below Physical Exam Physical Exam: Without focalWhenever I first saw her she was sleeping, even with a long discussion of the roommate she was still asleep. Later seeing her she appears very fatigued and mild distress due to nausea. HEENT normocephalic atraumatic mucous membranes moist. Breathing unlabored no accessory muscle use good effort. Skin shows no rashes no pallor or icterus. Abdomen shows a degree of right upper quadrant tenderness with a little bit of worsening with inspiration, although I would hesitate to call in a true Andrea sign. Left upper abdomen shows multiple discrete areas of myofascial nodularity consistent with trigger points that are quite tender. Neuro without focal deficits. Results & Data Results & Data ([facility]) Vital Signs (Past 12 Hours) Vital Signs Temp Pulse Resp BP Pulse Ox 08/12/21 15:43 98.8 F 85 14 131/77 95 08/12/21 07:25 98.4 F 84 14 167/94 H 98 PG Care Time/CCT Total # of Minutes Spent Total Time Spent with Patient: Total time spent is greater than 50% in coordination of care (as documented) at patient's floor/unit and/or counseling patient: Coding Level of Care Code 99950 Subseq Hosp Care Lvl 3 Diagnoses Hypokalemia E87.6 Intractable nausea and vomiting R11.2
[2021-08-12] MEDS ORDERED: LIDOCAINE VISCOUS 2% 15 ML UDC PO ONE (17:00)
[2021-08-12] MEDS: KETOROLAC TROMETHAMINE 15 MG/ML VIAL IV SCH ×3 (17:08→23:41)
[2021-08-12] MEDS: DICLOFENAC SOD 1% GEL 100 GM TUBE EXT SCH ×2 (17:08→21:49)
[2021-08-12] MEDS: ONDANSETRON INJ 2 MG/ML 2 ML VIAL IV SCH ×3 (17:08→23:42)
--- NOTE | 2021-08-12 22:06 | Ultrasound Report ---
US abdomen limited CLINICAL HISTORY: RUQ - nausea/vomiting, eval gallbladder TECHNIQUE: Multiple real-time sonographic images of the right upper quadrant were obtained. Comparison: None available at the time of this dictation. FINDINGS: The liver is diffusely homogenous with normal contour and echogenicity. No focal mass lesions are se en. No intrahepatic ductal dilatation is seen. No gallstones or sludge are identified within the gallbladder. The gallbladder wall is not thickened. There is no pericholecystic fluid present. A son ographic Andrea's sign was not elicited by the library circulation assistant. The common duct measures 0.5 cm in diam eter at the level of the hepatic artery. The visualized portions of the pancreas appear normal. The right kidney shows normal echogenicity, cortical thickness and renal contour. The right kidney sh ows no evidence of hydronephrosis or mass. Prominent renal pelvis is incidentally noted. No ascites or free fluid is seen in Schofield's pouch. IMPRESSION: No acute abnormalities and in particular no pericholecystic fluid, wall thickening, or Andrea's sign to suggest acute cholecystitis. ACT 112: Negative or not required by law. Electronically signed by: Milton Craig M.D. 08/12/2021 10:04 PM
[2021-08-13] MEDS: PROMETHAZINE HCL 6.25 MG in SODIUM CHLORIDE 0.9% 50 ML IV PRN (00:05)
[2021-08-13] MEDS: POTASSIUM CHLORIDE 10 MEQ in SODIUM CHLORIDE 0.9% 1000ML 1,000 ML IV SCH ×2 (03:10→13:12)
[2021-08-13] MEDS: PROCHLORPERAZINE 5 MG in SYRINGE 4 ML IV PRN (03:22)
[2021-08-13] MEDS: ACETAMINOPHEN 1,000 MG/100 ML VIAL IV PRN ×2 (03:28→18:37)
[2021-08-13] MEDS: KETOROLAC TROMETHAMINE 15 MG/ML VIAL IV SCH ×5 (05:07→22:37)
[2021-08-13] MEDS: ONDANSETRON INJ 2 MG/ML 2 ML VIAL IV SCH ×5 (05:07→22:37)
[2021-08-13] MEDS: LEVOTHYROXINE SODIUM 50 MCG TABLET PO SCH (05:40)
[2021-08-13 08:26] LABS: Amobarbital, Urine Conf NEGATIVE ng/mL (<100); Butalbital, Urine NEGATIVE ng/mL (<100); Marijuana Quant, GCMS Urine 2407 ng/mL (<5); Pentobarbital, Urine Conf NEGATIVE ng/mL (<100); Phenobarbital, Urine 576 ng/mL (<100); Secobarbital, Urine Conf NEGATIVE ng/mL (<100)
[2021-08-13] MEDS: DICLOFENAC SOD 1% GEL 100 GM TUBE EXT SCH ×4 (08:55→20:18)
[2021-08-13] MEDS: FAMOTIDINE 20 MG in SYRINGE 3 ML IV SCH (08:55)
[2021-08-13] MEDS: ENOXAPARIN INJ 40 MG/0.4 ML SYR SQ SCH (10:23)
[2021-08-13] MEDS: CYANOCOBALAMIN 500 MCG TABLET (VITAMIN B-12) PO SCH (12:15)
[2021-08-13] MEDS: CHOLECALCIFEROL 1,000 UNITS 25 MCG TAB PO SCH (12:15)
[2021-08-13] MEDS: DICYCLOMINE HCL 20 MG TAB PO PRN (14:15)
[2021-08-13] MEDS ORDERED: DOCUSATE SODIUM 100 MG CAP PO PRN (17:56)
--- NOTE | 2021-08-13 18:37 | Hospitalist Progress Note ---
Date of Service August 13, 2021 Assessment & Plan (1) Cyclic vomiting syndrome: Plan: Acute/episodic; improving; not at goal * IV Zofran 4 mg scheduled every 4 hours; Compazine 5 mg IV as needed; promethazine 6.25 mg IV as needed for hyperemesis * Advance to clear liquid diet, then regular diet, for lunch and dinner respectively. * IV Pepcid discontinued; switched IV Protonix 40 mg; replete potassium * Likely discharge in the morning pending successful trial of regular diet (2) Myofascial pain syndrome: Plan: Acute/chronic; improving; not at goal * Localized to the right upper quadrant, just below the right diaphragm. * Voltaren gel as needed for pain. (3) Hypokalemia: Plan: See above #1 Admission and Anticipated Discharge Date Admission Date: August 13, 2021 Supervising Physician Co-Signing Physician Notes I personally examined the patient and verified all vance points of history and exam, discussed case, and agree with decision making with Dr. Esparza with the following additions/exceptions: Patient reports feeling better today is feeling hungry, would like her diet advanced. Only has some abdominal pain with palpation which she thinks is musculoskeletal from vomiting previously. She reports that on her EGD done within the last year, that she was noted to have retained food. Her colonoscopy was normal. She has never had a gastric emptying study. She last smoked marijuana 6 weeks ago as per her report, however her urine drug screen still positive for marijuana as well as barbiturates. Vitals reviewed Gen: AAOx3, NAD HEENT: Anicteric sclerae, EOMI CV: RRR no mgr nl S1S2 Pulm: CTAB no wcr Abd: +BS soft NT ND no masses or hernias Ext: No edema, 2+ DP pulses Skin: No rashes, warm/dry Neuro: Full strength throughout This patient is a 25-year-old female with recurrent episodes of nausea/vomiting that occur every 3 to 4 months and seem to be related to stress. Is possible that she has cyclic vomiting syndrome, however would also entertain gastroparesis given retained food in stomach as per her report on EGD after fasting for many hours. Okay to advance diet slowly for the next 24 hours, DC IV fluids Discontinue promethazine as she is already getting Compazine -Recommend outpatient gastric emptying study -Recommended continued abstinence from marijuana Likely discharge to home tomorrow Subjective Patient is sleeping in bed comfortably this morning. She admits to some nausea, which she had after breakfast, but she denies vomiting. She denies trigger point pain at the moment. She would like to try a regular diet at lunch. Otherwise she has no concerns at this time. Review of Systems Review of Systems: All systems reviewed & are unremarkable except as noted in HPI & below Physical Exam Constitutional: WD/WN, vitals as above Eyes: PERRL, conjunctivae normal, anicteric sclerae Respiratory: normal respiratory effort, lungs clear to auscultation Cardiovascular: RRR, no murmur, no edema Gastrointestinal (Abdomen): normal bowel sounds, soft, nontender, no hepatosplenomegaly Mild tenderness in the upper right abdomen, just below the diaphragm. Results & Data Results & Data ([facility]) Vital Signs (Past 12 Hours) Vital Signs Temp Pulse Resp BP Pulse Ox 08/13/21 16:38 36.7 C 73 14 136/84 96 08/13/21 07:52 36.8 C 91 H 16 154/83 H 98 Resident Activity Tracking Resident Involvement: Resident Care Provided Care Provided: Adult Hospital Medicine
--- NOTE | 2021-08-13 23:12 | Billing Data ---
Date of Service August 13, 2021 Coding Level of Care Code 41800 Subseq Hosp Care Lvl 2
[2021-08-14] MEDS: LORazepam 1 MG TAB PO PRN (00:13)
[2021-08-14] MEDS: PROCHLORPERAZINE 5 MG in SYRINGE 4 ML IV PRN (00:13)
[2021-08-14] MEDS: ONDANSETRON INJ 2 MG/ML 2 ML VIAL IV SCH ×4 (05:03→22:13)
[2021-08-14] MEDS: KETOROLAC TROMETHAMINE 15 MG/ML VIAL IV PRN ×3 (05:03→18:27)
[2021-08-14] MEDS: LEVOTHYROXINE SODIUM 50 MCG TABLET PO SCH (05:38)
[2021-08-14 06:39] LABS: Basophils # (auto) 0.02 K/uL (0-0.2); Basophils % (auto) 0.2 %; Eosinophils # (auto) 0.09 K/uL (0-0.5); Eosinophils % (auto) 0.9 %; Hematocrit (blood only) 40.1 % (37-47); Hemoglobin 13.6 g/dL (12.0-16.0); Immature Granulocytes # (auto) 0.03 K/uL (0.00-0.02); Immature Granulocytes % (auto) 0.3 %; Lymphocytes # (auto) 1.26 K/uL (1.2-3.4); Lymphocytes % (auto) 13.1 %; Mean Corpuscular Hemoglobin 30.6 pg (25-34); Mean Corpuscular Hgb Conc 33.9 g/dL (32-36); Mean Corpuscular Volume 90.3 fL (80-100); Mean Platelet Volume 12.8 fL (7.4-10.4); Monocytes # (auto) 1.02 K/uL (0.11-0.59); Monocytes % (auto) 10.6 %; Neutrophils # (auto) 7.23 K/uL (1.4-6.5); Neutrophils % (auto) 74.9 %; Platelet Count 201 K/uL (130-400); RDW Coefficient of Variation 12.6 % (11.5-14.5); RDW Standard Deviation 41.6 fL (36.4-46.3); Red Blood Count 4.44 M/uL (4.2-5.4); White Blood Count 9.65 K/uL (4.8-10.8)
[2021-08-14 07:02] LABS: Albumin Level 3.7 gm/dl (3.4-5.0); BUN Creatinine Ratio 6.9 (10-20); Calcium 8.9 mg/dl (8.5-10.1); Creatinine Clr Calc Pharmacy 114.2 ml/min; Est GFR (African American) 119.7 ml/min; Est GFR (Non-African American) 103.3 ml/min; Potassium 3.6 mmol/L (3.5-5.1)
[2021-08-14 07:05] LABS: Bilirubin,Total 0.5 mg/dl (0.2-1); Globulin 3.6 gm/dl (2.5-4.0); Total Protein 7.3 gm/dl (6.4-8.2)
[2021-08-14] MEDS: ENOXAPARIN INJ 40 MG/0.4 ML SYR SQ SCH (08:40)
[2021-08-14] MEDS: DICLOFENAC SOD 1% GEL 100 GM TUBE EXT SCH ×4 (08:40→20:37)
[2021-08-14] MEDS: PANTOprazole 40 MG TAB PO SCH (08:41)
[2021-08-14] MEDS: CHOLECALCIFEROL 1,000 UNITS 25 MCG TAB PO SCH (08:41)
[2021-08-14] MEDS: CYANOCOBALAMIN 500 MCG TABLET (VITAMIN B-12) PO SCH (08:41)
--- NOTE | 2021-08-14 09:25 | Hospitalist Progress Note ---
Date of Service August 14, 2021 Assessment & Plan (1) Cyclic vomiting syndrome: Plan: Acute/episodic; improving; not at goal * IV Zofran 4 mg scheduled every 4 hours; Compazine 5 mg IV as needed * Clear liquid diet * IV Protonix 40 mg; replete potassium * Failed trial of lunch with nausea, vomiting on CLD; added IV Reglan 10 mg every 8 hours as needed; added capsaicin cream as needed for hyperemesis * Able to tolerate dinner (peaches) without emesis * Anticipate discharge tomorrow morning on Zofran 4 mg every 6 hours, Reglan p.o. 10 mg as needed DVT prophylaxis: Lovenox SQ 40 mg daily Dispo: Likely tomorrow (2) Myofascial pain syndrome: Plan: Acute/chronic; improving; not at goal * Localized to the right upper quadrant, just below diaphragm bilaterally * Voltaren gel as needed for pain. (3) Hypokalemia: Plan: See above #1 Admission and Anticipated Discharge Date Admission Date: August 13, 2021 Supervising Physician Co-Signing Physician Notes I personally examined the patient and verified all vance points of history and e xam, discussed case, and agree with decision making with Dr. Esparza with the following additions/exceptions: Patient had just eaten solid foods for lunch when I saw her and reported a return of nausea. Shortly after I walked into the room, she began vomiting again. I came back to see her and discussed trial of Reglan. She was still feeling nauseated with dinner so decision was made to keep her again overnight. Vitals reviewed Gen: AAOx3, NAD HEENT: Anicteric sclerae, EOMI CV: RRR no mgr nl S1S2 Pulm: CTAB no wcr Abd: +BS soft NT ND no masses or hernias Ext: No edema Skin: No rashes, warm/dry Neuro: Full strength throughout This patient is a 25-year-old female with recurrent episodes of nausea/vomiting that occur every 3 to 4 months and seem to be related to stress. Is possible that she has cyclic vomiting syndrome, however would also entertain gastroparesis given retained food in stomach as per her report on EGD after fasting for many hours. With continued vomiting after trying solid foods today, but previously tolerating clear liquids Continue regular diet as tolerated Added metoclopramide 10 mg IV every 8 hours as needed Continue Compazine but increase to 10 mg IV every 6 hours as needed -Recommend outpatient gastric emptying study -Recommended continued abstinence from marijuana Likely discharge to home tomorrow if tolerating p.o. Subjective Patient is seated in bed this morning, after having completed breakfast. She reports mild nausea but denies vomiting. She has yet to try the Zofran but it had helped with dinner so she is hopeful. She has no other complaints at this time. Review of Systems Review of Systems: All systems reviewed & are unremarkable except as noted in HPI & below Physical Exam Constitutional: WD/WN, vitals as above Eyes: PERRL, conjunctivae normal, anicteric sclerae Respiratory: normal respiratory effort, lungs clear to auscultation Cardiovascular: RRR, no murmur, no edema Gastrointestinal (Abdomen): normal bowel sounds, soft, nontender, no hepatosplenomegaly Results & Data Results & Data ([facility]) Vital Signs (Past 12 Hours) Vital Signs Temp Pulse Resp BP Pulse Ox 08/14/21 07:21 36.8 C 89 12 143/82 H 96 08/14/21 04:06 36.7 C 84 16 121/74 98 08/13/21 22:59 37 C 75 18 144/86 H 96 Laboratory Results 08/14/21 06:20 08/14/21 06:20 Resident Activity Tracking Resident Involvement: Resident Care Provided Care Provided: Adult Hospital Medicine
[2021-08-14] MEDS ORDERED: METOCLOPRAMIDE HCL INJ 5 MG/ML 2 ML VIAL IV ONE (12:50)
[2021-08-14] MEDS ORDERED: PROCHLORPERAZINE 10 MG in SYRINGE 4 ML IV PRN (12:50)
[2021-08-14] MEDS ORDERED: PROCHLORPERAZINE 10 MG in SYRINGE 8 ML IV PRN (13:30)
[2021-08-14] MEDS ORDERED: CAPSAICIN CR 0.075% 60 GM TUBE EXT PRN (17:57)
[2021-08-14] MEDS: METOCLOPRAMIDE HCL INJ 5 MG/ML 2 ML VIAL IV PRN (20:37)
--- NOTE | 2021-08-14 20:56 | Billing Data ---
Date of Service August 14, 2021 Coding Level of Care Code 14635 Subseq Hosp Care Lvl 2
[2021-08-15] MEDS: ONDANSETRON INJ 2 MG/ML 2 ML VIAL IV SCH ×2 (04:41→11:44)
[2021-08-15] MEDS: KETOROLAC TROMETHAMINE 15 MG/ML VIAL IV PRN (04:46)
[2021-08-15] MEDS: LEVOTHYROXINE SODIUM 50 MCG TABLET PO SCH (05:31)
[2021-08-15] MEDS ORDERED: ACETAMINOPHEN 325 MG TAB PO PRN (05:38)
[2021-08-15] MEDS: DICLOFENAC SOD 1% GEL 100 GM TUBE EXT SCH (07:38)
[2021-08-15] MEDS: CHOLECALCIFEROL 1,000 UNITS 25 MCG TAB PO SCH (07:38)
[2021-08-15] MEDS: ENOXAPARIN INJ 40 MG/0.4 ML SYR SQ SCH (07:38)
[2021-08-15] MEDS: PANTOprazole 40 MG TAB PO SCH (07:38)
[2021-08-15] MEDS: CYANOCOBALAMIN 500 MCG TABLET (VITAMIN B-12) PO SCH (07:38)
[2021-08-15] MEDS ORDERED: POTASSIUM CHLORIDE CRTAB 20 MEQ TABCR PO STA (08:21)
[2021-08-15] MEDS: METOCLOPRAMIDE HCL INJ 5 MG/ML 2 ML VIAL IV PRN (08:48)
--- NOTE | 2021-08-15 10:16 | Discharge Summary ---
Date of Service August 15, 2021 Admission HPI Per Admitting Provider This is a 25-year-old female who presented to [facility] emergency department secondary to uncontrolled nausea vomiting. Patient notes that she was diagnosed with cyclic vomiting syndrome approximately 1 year ago. She said that her symptoms come and go in and on peritoneal fashion that she can sometimes go weeks or months at a time without any symptomatology. She notes that her current presentation began approximately 1 week ago with nausea vomiting and unable to keep any oral intake down. She denies any fevers, shakes, chills. She does note some generalized abdominal pain but admits it is worst in the epigastric area. She notes that the pain is better when she takes a hot shower and she says that the pain is worse when she throws up. She denies any hematemesis. The patient does report intermittent melanotic stools. Patient says that in regards to her cyclic vomiting syndrome she has had both an upper and lower endoscopy and to the best of her knowledge this was without any significant pathology. She says she is also had CT scans of her abdomen as well as gallbladder ultrasound also which were negative for any significant pathology. Prior to her presentation to [facility] she was most recently seen in the emergency department at [facility] on 08-23. During this visit she did have an obstruction series which was negative and she also had a CT scan of her abdomen and pelvis that showed findings that may have been consistent with enteritis but no other significant findings were noted. She denies any history abdominal surgeries or any diabetes. The patient does admit to marijuana use but reports that her most recent use was approximately 3 weeks ago. Because of her continued symptoms she presented to the emergency department. Patient was actually seen at [facility] on 08/10/2021 which was yesterday. During this visit CBC showed her white blood cell count was 12.1. Her hemoglobin, hematocrit, and platelet count were all noted to be normal. During this visit a chemistry profile showed her sodium, potassium, BUN, and creatinine were all within the normal range. She had a urinalysis that was not indicative of infection and a negative test. She did have a toxicology screen that was noted to be positive for marijuana. The patient's symptoms were controlled during that emergency room visit and she was discharged home. She represented to the emergency department as noted above secondary to continued symptoms. Today in the emergency department she did have labs and imaging which independent reviewed. She did have an obstruction series that showed a normal bowel gas pattern and there is no free air noted on chest x-ray. There is also no evidence of pneumonia. Labs today include a CBC her white blood cell count is 12.9. Hemoglobin, hematocrit, and platelet count were all within the normal range. Chemistry profile showed her sodium was normal. Her potassium is low at 2.7. Her BUN and creatinine were noted to be normal. Magnesium is noted to be normal. Cardiac enzymes were checked and were nonelevated. His total protein and albumin were both low at 5.9 and 2.8 respectively. Her lipase is within the normal range. She also had a test checked again today which was negative. A TSH was noted to be within normal range. A Covid test was performed today which was noted to be negative. She was also checked for influenza type a and B along with RSV all of which were negative. Due to her ongoing symptoms the clinicians in the emergency department felt admission was warranted. At the time of my interview the patient did not appear to be in any distress. Admission Exam Per Admitting Provider Constitutional: well developed, well nourished and cooperative; no acute distress Eyes: PERRL, conjunctivae normal, anicteric sclerae Wears glasses ENMT: Ears: no hearing impairment and no external ear abnormality Mucous membranes of her oropharynx are moist Neck: trachea midline Respiratory: normal respiratory effort, lungs clear to auscultation Cardiovascular: Rate/Rhythm: regular rate and regular rhythm Gastrointestinal (Abdomen): Abdomen is soft and nondistended. Bowel sounds are present. There is no rebound tenderness or guarding. There is no pain with palpation. Andrea sign is negative. Musculoskeletal: Radial and pedal pulses are palpable. No gross orthopedic abnormalities. No calf tenderness Skin: normal turgor Neurologic: moves all extremities Psychiatric: Orientation: alert and oriented x 3 Affect: + flat affect Principal Diagnosis Cyclic vomiting syndrome Myofascial pain syndrome Discharge Exam Constitutional WD/WN, vitals as above Eyes PERRL, conjunctivae normal, anicteric sclerae Respiratory normal respiratory effort, lungs clear to auscultation Cardiovascular RRR, no murmur, no edema Gastrointestinal (Abdomen) normal bowel sounds, soft, nontender, no hepatosplenomegaly Musculoskeletal no cyanosis or clubbing, extremities motor strength 5/5 Discharge Data Allergies Allergy/AdvReac Type Severity Reaction Status Date / Time Sulfa (Sulfonamide Allergy Unknown UNKNOWN Verified 08/11/21 07:25 Antibiotics) Consultations 08/11/21 07:59 ED Decision to Admit Stat 08/12/21 18:33 Consult [facility] lead network engineer Routine Ordered Studies 08/12/21 16:41 US abdomen limited Routine Hospital Course (1) Cyclic vomiting syndrome: Patient w/ recently diagnosed hx of cyclic vomiting syndrome * Admitted and started on supportive management: IV Zofran 4 mg scheduled every 4 hours; Compazine 5 mg IV as needed; promethazine 6.25 mg IV as needed for hyperemesis * Clear liquid diet * IV Protonix 40 mg; repleted potassium as needed * 08/14: Failed trial of lunch with nausea, vomiting on full liquid diet; IV Reglan 10 mg added every 8 hours as needed (pt recounted episode of gastroparesis during her upper EGD); added capsaicin cream as needed for hyperemesis * 08/14: Able to tolerate dinner (peaches) without emesis * Patient tolerated breakfast w/o emesis but required Reglan. * Planned for d/c home on short course of Reglan 10 mg PO. * GI follow up already scheduled for Sunday * Elicited hx of anxiety this morning; recommended psych. outpt f/u for counselling for anxiety management ([facility]) DVT prophylaxis: Lovenox SQ 40 mg daily Dispo: Today (2) Myofascial pain syndrome: Stable * Localized to the right upper quadrant, just below diaphragm bilaterally * Voltaren gel as needed for pain. * Outpatient follow-up with pain management (3) Hypokalemia: Acute; stable * Repleted orally due to gastric losses; pt able to tolerate throughout Total Time Total Time Spent Total Time Spent (In Minutes): 20 Discharge Plan Discharge Items Patient Disposition: Home - Self-Care Reason For Visit: CYCLIC VOMITING Discharge Diagnosis: Cyclic vomiting syndrome Condition on Discharge: Good Activity: Per Instructions section Non-emergency contact: Primary Care Provider and [employer] Administrator Call non-emergency contact if: you have any medication questions and your symptoms worsen Follow-up/Referrals: Martha Tillman MD [Primary Care Provider] - Diet: Regular Addtl Attending Provider Instructions: Intractable nausea and vomiting -You carry a "working diagnosis" of cyclic vomiting syndromeas we discussed, this is a very ill understood (still very real) functional disorder of the GI tract that leads to bouts of intractable nausea and vomiting coming in somewhat random cycles -At the same time, we certainly want to look for any other causes for your nausea and vomiting that would be more manageable/more reversibleto that end I do wonder about cannabis hyperemesis (like we were talking the "backwards" reaction where instead of causing hunger and stimulating appetite, cannabis hits the brain in a backwards way causing intractable nausea and vomitingthis can sometimes take months of abstinence to resolve, so as we discussed, the only real way to trial this as a possibility is to completely abstain from marijuana until somewhere around November, and see how you doif the nausea/vomiting resolves, it would be prudent to never smoke again), and we also wonder about the impact of your abdominal wall trigger points (the trigger points may have come up secondary to feeling sick all the timefrequently they come up as a reaction to ongoing abdominal distress, or while less likely, they could actually be the "root cause"either way I think they are contributing to your symptoms now. They create funny nerve reflex that creates "phantom abdominal pain and nausea"and usually respond pretty well to trigger point injectionsto that end we have a referral underway for you to see pain management. Please check in again with your PCP to ensure that this is on the way. If not, have your PCP obtain one for you. In the meantime, use the Voltaren gel 4 times a day over that area. In my experience it does not take them away, but it often "makes a dent") Pending Studies at Discharge: No Stand-Alone Forms: My [facility], Smoking Cessation Medications and DC Order Prescriptions: New metoclopramide HCl [Reglan] 10 mg tablet 10 mg PO Q6H 7 Days Qty: 28 RF: 0 Continued levothyroxine 50 mcg tablet 50 mcg PO DAILY Qty: 30 RF: 2 mecobalamin (vitamin B12) 1,000 mcg tablet,chewable 1,000 mcg PO DAILY Qty: 90 RF: 3 cholecalciferol (vitamin D3) 50 mcg (2,000 unit) capsule 50 mcg PO DAILY Qty: 90 RF: 3 promethazine 25 mg suppository 25 mg MN Q8H PRN (Reason: nausea and vomiting) Qty: 12 RF: 0 prochlorperazine maleate 5 mg tablet 5 mg PO DAILY PRN (Reason: Nausea) RF: 0 famotidine 20 mg tablet 20 mg PO DAILY RF: 0 dicyclomine 20 mg tablet 20 mg PO DAILY PRN (Reason: Abdominal Discomfort) RF: 0 ondansetron 4 mg tablet,disintegrating 4 mg PO Q6H PRN (Reason: nausea and vomiting) Qty: 20 RF: 0 lorazepam 1 mg tablet 1 mg PO TID PRN (Reason: anxiety) Qty: 6 RF: 0 Discharge Orders: Discharge Order (Routine); Ordered 08/15/21 Ordered By: Catarino Santoyo/Other Patient Handouts: Self-Care for Vomiting and Diarrhea, Understanding Marijuana Abuse, Understanding Cyclic Vomiting Syndrome Admission Data Admit Date/Time: 08/13/21 15:36 Attending Provider: Alena Pryor Admit Provider: Jaciel Gray Primary Care Provider: Martha Tillman V. Other Providers: Milton Pineda Other Interventions: Discharge Summary Assessment (RN) Last Done: 08/15/21 12:08 Supervising Physician Co-Signing Physician Notes Resident Physician Supervision Note: I independently interviewed and examined the patient and verified the vance history and physical, reviewed labs and image studies and agree with resident Dr. Esparza findings and care plan. Resident Activity Tracking Resident Involvement: Resident Care Provided Care Provided: Adult Hospital Medicine
== END 2021-08-15 13:48 | disposition home or self-care (01) | DRG 395 ==
LOC: ED 04:45 → EDINP 04:45 → SUATTDRO 08:48 → 3N 11:28 → SUATTDRO 08-13 15:36
DX: U07.0 Vaping-related disorder; E87.6 Hypokalemia; Z88.2 Allergy status to sulfonamides; F17.210 Nicotine dependence, cigarettes, uncomplicated; R11.15 Cyclical vomiting syndrome unrelated to migraine; F17.290 Nicotine dependence, other tobacco product, uncomplicated; M79.18 Myalgia, other site

== ENCOUNTER 2021-11-25 09:51 | Observation (INO) ==
[2021-11-25] MEDS ORDERED: METOCLOPRAMIDE HCL INJ 5 MG/ML 2 ML VIAL IV STA (10:12)
[2021-11-25] MEDS ORDERED: SODIUM CHLORIDE 0.9% 1000ML 1,000 ML IV ONE ×2 (10:12→14:00)
[2021-11-25] MEDS ORDERED: diphenhydrAMINE 50 MG/ML VIAL IV STA (10:12)
[2021-11-25] MEDS ORDERED: FAMOTIDINE 20MG IV PUSH 20 MG/5 ML SYR IV STA (10:13)
[2021-11-25] MEDS ORDERED: KETOROLAC 30 MG/ML VIAL IV STA (10:19)
[2021-11-25 10:24] LABS: Basophils # (auto) 0.02 K/uL (0-0.2); Basophils % (auto) 0.1 %; Eosinophils # (auto) 0.03 K/uL (0-0.5); Eosinophils % (auto) 0.2 %; Hematocrit (blood only) 39.9 % (37-47); Hemoglobin 13.8 g/dL (12.0-16.0); Immature Granulocytes # (auto) 0.02 K/uL (0.00-0.02); Immature Granulocytes % (auto) 0.1 %; Lymphocytes # (auto) 1.11 K/uL (1.2-3.4); Lymphocytes % (auto) 7.6 %; Mean Corpuscular Hemoglobin 31.1 pg (25-34); Mean Corpuscular Hgb Conc 34.6 g/dL (32-36); Mean Corpuscular Volume 89.9 fL (80-100); Mean Platelet Volume 12.5 fL (7.4-10.4); Monocytes # (auto) 0.89 K/uL (0.11-0.59); Monocytes % (auto) 6.1 %; Neutrophils # (auto) 12.53 K/uL (1.4-6.5); Neutrophils % (auto) 85.9 %; Platelet Count 241 K/uL (130-400); RDW Coefficient of Variation 13.2 % (11.5-14.5); RDW Standard Deviation 43.4 fL (36.4-46.3); Red Blood Count 4.44 M/uL (4.2-5.4)
[2021-11-25 10:49] LABS: Albumin Globulin Ratio 1.5 (0.9-2); Albumin Level 4.8 gm/dl (3.4-5.0); BUN Creatinine Ratio 18.5 (10-20); Bilirubin,Total 0.7 mg/dl (0.2-1.0); Calcium 9.8 mg/dl (8.5-10.1); Creatinine Clr Calc Pharmacy 110.9 ml/min; Est GFR (African American) 115.4 ml/min; Est GFR (Non-African American) 99.5 ml/min; Globulin 3.2 gm/dl (2.5-4.0); Potassium 3.3 mmol/L (3.5-5.1)
[2021-11-25 10:56] LABS: Pregnancy Test, Urine Negative (Negative)
[2021-11-25 10:57] LABS: Appearance Urine Turbid (Clear); Bacteria Urine Automated 4+ (Negative); Blood Urine 3+ (Negative); Color Urine Red; Epithelial Cell Urine Auto >30 /lpf (0-5); Glucose Urine UA Negative (Negative); Ketones Urine 1+ (Negative); Leukocyte Esterase Urine 2+ (Negative); Nitrite Urine Positive (Negative); Specific Gravity Urine 1.028 (1.000-1.030); Urobilinogen Urine Negative (Negative); WBC Urine Automated >30 /hpf (0-5); pH Urine >= 9.0 (4.5-7.5)
--- NOTE | 2021-11-25 10:57 | Emergency Department Note ---
History of Present Illness General Chief complaint: Vomiting Stated complaint: VOMITING Time Seen by Provider: 11/25/21 10:10 History of Present Illness Maximum Pain Intensity: 9 This 26-year-old female patient presents to the emergency department today for evaluation of cyclic vomiting. The patient reports a history of the same. She states her symptoms are often associated with anxiety and she recently started a new job and feels that her anxiety and stress level has been elevated. The patient was seen here 2 days ago for the same symptoms. She was medicated with multiple rounds of IV antiemetics and analgesics and ultimately experienced improvement in her symptoms, was able to tolerate Powerade, and was able to go home. She states this morning, her symptoms flared up and she decided to come back to the emergency department for evaluation. She tried an oral Phenergan as well as Zofran, but notes she vomited them back up. She does have rectal suppositories of Phenergan, but states she did not take any of them. She is reporting generalized abdominal discomfort. No recent fever or illness. No blood in the emesis. No diarrhea or constipation. She rates her generalized abdominal pain 9/10 and describes it as burning and aching. Home Medications Medication Instructions Recorded Confirmed Type cholecalciferol (vitamin D3) 50 50 mcg PO DAILY #90 cap 10/12/20 11/25/21 Rx mcg (2,000 unit) capsule mecobalamin (vitamin B12) 1,000 1,000 mcg PO DAILY #90 tab 10/12/20 11/25/21 Rx mcg chewable tablet dicyclomine 20 mg tablet 20 mg PO DAILY PRN 08/10/21 11/25/21 History lorazepam 1 mg tablet 1 mg PO TID PRN #6 tab 08/10/21 11/25/21 Rx famotidine 20 mg tablet 20 mg PO DAILY PRN 09/26/21 11/25/21 History nortriptyline 10 mg capsule 10 mg PO DAILY PRN cap 09/26/21 11/25/21 History levothyroxine 50 mcg tablet 50 mcg PO DAILY #90 tab 10/14/21 11/25/21 Rx ondansetron 4 mg disintegrating 4 mg PO Q6H PRN #30 tab 11/08/21 11/25/21 Rx tablet promethazine 25 mg rectal 25 mg MO Q8H PRN #12 ea 11/08/21 11/25/21 Rx suppository Lactobacillus acidophilus 10 10,000 mmu cells PO DAILY 11/25/21 11/25/21 History billion cell capsule (Probiotic) acetaminophen 500 mg tablet 500 mg PO Q6H PRN 11/25/21 11/25/21 History (Tylenol Extra Strength) psyllium husk 3.4 gram/5.4 gram 1 tsp PO DAILY 11/25/21 11/25/21 History oral powder (Metamucil) Allergies Allergy/AdvReac Type Severity Reaction Status Date / Time Sulfa (Sulfonamide Allergy Unknown UNKNOWN Verified 11/25/21 10:46 Antibiotics) Past Med/Surg History Medical History Abdominal wall pain Anxiety disorder Cyclic vomiting syndrome Headache Hypokalemia Nausea and vomiting Screen for STD (sexually transmitted disease) Vaginal discharge Surgical History H/O oral surgery Family History Grandfather (Paternal) Colorectal cancer Father Hypertension Thyroid cancer Stroke Grandmother (Maternal) Diabetes Other Breast cancer Cyclic vomiting syndrome Denies family history of Ovarian cancer Prostate cancer Myocardial infarction Social History Smoking Status: Current every day smoker Tobacco Type: E-cigarettes / Vaping Cigarettes Per Day: 1 pack every 3days; Hx Alcohol Use: Yes Hx Substance Use: Yes Last Used Substance: Days (ago) Last Used Substance Other:: 3 weeks ago Preferred Language: Zimbabwean Communication Ability: Effective Visual Impairment: No Limitations Hearing Ability: Normal Sample Grinder Required: No Beliefs That Will Affect Care: None marital status: Single Current Living Situation: Alone current occupational status: employed current occupation: [employer] How many Children do You have: 0 Feels Safe at Home: Yes Dental Care, Regularly: Yes Physical Activity Frequency: 1-2 Times per Week Seatbelt Use: always Sunscreen Use: Yes Assistive Devices: None Review of Systems A total of 10 systems reviewed and were otherwise negative Physical Exam Vital Signs Vital Signs - 24 hr 11/25/21 09:58 11/25/21 10:48 11/25/21 10:51 Temperature 37.3 C Temperature Source Temporal Artery Scan Pulse Rate 79 73 Pulse Rate [Radial] 73 Pulse Rhythm [Radial] Pulse Strength [Radial] Respiratory Rate 18 20 20 Respiratory Effort / Characteristics Respiratory Depth Normal Respiratory Pattern Blood Pressure [Right Arm] Blood Pressure Mean [Right Arm] Blood Pressure Position [Right Arm] Pulse Oximetry 99 100 100 Oxygen Delivery Method Room Air Room Air Sepsis Recent Fever Within 48 Hours No Sepsis New/Unexplained Change in Mental Status No Sepsis Action Taken by Nursing No Action Required 11/25/21 14:16 Temperature Temperature Source Pulse Rate Pulse Rate [Radial] 75 Pulse Rhythm [Radial] Regular Pulse Strength [Radial] Normal Respiratory Rate 20 Respiratory Effort / Characteristics Non-Labored Spontaneous Respiratory Depth Normal Respiratory Pattern Regular Blood Pressure [Right Arm] 126/63 Blood Pressure Mean [Right Arm] 84 Blood Pressure Position [Right Arm] Sitting Pulse Oximetry 97 Oxygen Delivery Method Room Air Sepsis Recent Fever Within 48 Hours Sepsis New/Unexplained Change in Mental Status Sepsis Action Taken by Nursing VITALS: Vitals are noted on the nurse's note and reviewed by myself. Vital signs stable. Patient is actively retching throughout examination. GENERAL: This is a 26-year-old white female, in no acute distress, nondiaphoretic, well-developed well-nourished. SKIN: The skin was without rashes, erythema, edema, or bruising. There is no tenting of the skin. Capillary refill less than 2 seconds. HEAD: Normocephalic atraumatic. EYES: Conjunctivae without injection, sclerae without icterus. NECK: Supple without nuchal rigidity. No lymphadenopathy. No JVD. HEART: Regular rate and rhythm without murmurs gallops or rubs. LUNGS: Clear to auscultation bilaterally without wheezes, rales or rhonchi. No retractions or accessory muscle use. ABDOMEN: Positive bowel sounds x 4. Diffuse tenderness throughout the abdomen. Abdomen otherwise soft, without masses or organomegaly. Andrea sign negative. No guarding or rebound tenderness. MUSCULOSKELETAL: No muscle atrophy, erythema, or edema noted. Full range of motion without joint tenderness in all extremities. No tenderness to palpation. Normal gait. Strength 5/5 throughout. NEURO: Patient was alert and oriented to person place and time. No focal neurological deficits. Course Course The patient was seen and evaluated as above. Previous medical records reviewed. An order was placed for continuous cardiac monitoring. The monitor shows a norm al sinus rhythm at a rate of 75 bpm. IV access obtained, labs drawn. Patient medicated with IV fluids, Toradol, Pepcid, Reglan, Benadryl. Patient continuing to retch. She was medicated with IV droperidol. Labs reviewed by myself. Imaging performed and reviewed by myself and radiologist as noted. I discussed the findings with the patient at bedside. Patient is continuing to complain of severe pain and nausea. She was medicated with a second liter of IV fluids, second dose of droperidol, and acetaminophen. Patient was also medicated with Rocephin due to the UTI. The patient was again reassessed. She continues to complain of nausea and vomiting and states she has been unable to tolerate any p.o. fluids. Recommended admission, the patient was agreeable, noting she does not feel that she can go home given her current state. I discussed case with the operations research group manager. I discussed case with Dr. Villanueva. She did agree to see and evaluate the patient. We did discuss the use of capsaicin cream. This was ordered and applied. Administered Medications Potassium Chloride (K aKreem / Wtr) 10 meq in 100 mls @ 100 mls/hr IV Q1H VÍCTOR; Protocol Stop: 11/25/21 18:29 Last Admin: 11/25/21 16:42 Dose: 100 mls/hr Documented by: [id number] Discontinued Medications Capsaicin (Capsaicin Cr 0.075% 60 Gm Tube) 1 appln EXT NOW STA Stop: 11/25/21 15:14 Last Admin: 11/25/21 15:59 Dose: Not Given Documented by: [id number] Diphenhydramine HCl (Diphenhydramine 50 Mg/Ml Vial) 25 mg IV NOW STA Stop: 11/25/21 10:13 Last Admin: 11/25/21 10:26 Dose: 25 mg Documented by: [id number] Droperidol (Droperidol 5 Mg/2 Ml Vial) 0.625 mg IV ONE STA Stop: 11/25/21 11:27 Last Admin: 11/25/21 11:53 Dose: 0.625 mg Documented by: [id number] Droperidol (Droperidol 5 Mg/2 Ml Vial) 0.625 mg IV ONE STA Stop: 11/25/21 12:30 Last Admin: 11/25/21 12:44 Dose: 0.625 mg Documented by: [id number] Sodium Chloride (Nss 1000ml) 1,000 mls @ 999 mls/hr IV .Q1H1M ONE Stop: 11/25/21 11:12 Last Infusion: 11/25/21 11:37 Dose: 0 mls/hr Documented by: [id number] Admin: 11/25/21 10:26 Dose: 999 mls/hr Documented by: [id number] Famotidine (Pepcid 20mg Iv Push) 20 mg in 5 mls @ 2.5 mls/min IV NOW STA Stop: 11/25/21 10:14 Last Admin: 11/25/21 10:26 Dose: 2.5 mls/min Documented by: [id number] Ceftriaxone Sodium (Rocephin) 1,000 mg in 50 mls @ 100 mls/hr IV NOW STA Stop: 11/25/21 12:48 Last Infusion: 11/25/21 13:31 Dose: 0 mls/hr Documented by: [id number] Admin: 11/25/21 12:43 Dose: 100 mls/hr Documented by: [id number] Acetaminophen (Ofirmev) 1,000 mg in 100 mls @ 400 mls/hr IV NOW STA Stop: 11/25/21 14:14 Last Infusion: 11/25/21 14:57 Dose: 0 mls/hr Documented by: [id number] Admin: 11/25/21 14:16 Dose: 400 mls/hr Documented by: [id number] Sodium Chloride (Nss 1000ml) 1,000 mls @ 999 mls/hr IV .Q1H1M ONE Stop: 11/25/21 15:00 Last Infusion: 11/25/21 15:50 Dose: 0 mls/hr Documented by: [id number] Admin: 11/25/21 14:16 Dose: 999 mls/hr Documented by: [id number] Ketorolac Tromethamine (Ketorolac 30 Mg/Ml Vial) 30 mg IV NOW STA Stop: 11/25/21 10:20 Last Admin: 11/25/21 10:34 Dose: 30 mg Documented by: [id number] Metoclopramide HCl (Metoclopramide Hcl Inj 5 Mg/Ml 2 Ml Vial) 10 mg IV NOW STA Stop: 11/25/21 10:13 Last Admin: 11/25/21 10:26 Dose: 10 mg Documented by: [id number] Medical Decision Making Differential Diagnosis Marijuana abuse, cyclic vomiting, hyperemesis, gastroenteritis, food borne illness, infections, appendicitis, diverticulitis, inflammatory bowel disease, obstruction, GI bleed, biliary pathology, volvulus, as well as other pathologies. Medical Records Attestation: I reviewed the patient's medical records. Home Medications Current Medication List: was personally reviewed by me Laboratory Data Attestation: I reviewed the patient's lab results. Leukocytosis of 14,000. No anemia or thrombocytopenia. Renal, hepatic function and electrolytes without significant abnormality. Procalcitonin negative. Urinalysis concerning for infection. Urine test negative. Urine drug screen positive for marijuana. Result diagrams: 11/25/21 10:19 11/25/21 10:19 Lab Results 11/25/21 11/25/21 11/25/21 Range/Units 10:19 10:19 10:19 WBC 14.60 H (4.8-10.8) K/uL RBC 4.44 (4.2-5.4) M/uL Hgb 13.8 (12.0-16.0) g/dL Hct 39.9 (37-47) % MCV 89.9 (80-100) fL MCH 31.1 (25-34) pg MCHC 34.6 (32-36) g/dL RDW Std Deviation 43.4 (36.4-46.3) fL RDW Coeff of Nereida 13.2 (11.5-14.5) % Plt Count 241 (130-400) K/uL MPV 12.5 H (7.4-10.4) fL Immature Gran % (Auto) 0.1 % Neut % (Auto) 85.9 % Lymph % (Auto) 7.6 % Vilas % (Auto) 6.1 % Eos % (Auto) 0.2 % Baso % (Auto) 0.1 % Neut # (Auto) 12.53 H (1.4-6.5) K/uL Lymph # (Auto) 1.11 L (1.2-3.4) K/uL Vil[place] # (Auto) 0.89 H (0.11-0.59) K/uL Eos # (Auto) 0.03 (0-0.5) K/uL Baso # (Auto) 0.02 (0-0.2) K/uL Immature Gran # (Auto) 0.02 (0.00-0.02) K/uL Sodium 138 (136-145) mmol/L Potassium 3.3 L (3.5-5.1) mmol/L Chloride 102 (98-107) mmol/L Carbon Dioxide 22 (21-32) mmol/L Anion Gap 14 H (3-11) BUN 15 (6-23) mg/dl Creatinine 0.81 (0.6-1.2) mg/dl Est Cr Clr Drug Dosing 110.9 ml/min Est GFR ( Amer) 115.4 ml/min Est GFR (Non-Af Amer) 99.5 ml/min BUN/Creatinine Ratio 18.5 (10-20) Glucose 121 H (70-99(Fasting)) mg/dl Calcium 9.8 (8.5-10.1) mg/dl Total Bilirubin 0.7 (0.2-1.0) mg/dl AST 27 (13-39) U/L ALT 29 (7-52) U/L Alkaline Phosphatase 36 (34-104) U/L Total Protein 8.0 (6.0-8.3) gm/dl Albumin 4.8 (3.4-5.0) gm/dl Globulin 3.2 (2.5-4.0) gm/dl Albumin/Globulin Ratio 1.5 (0.9-2) Lipase 13 (11-82) U/L Procalcitonin < 0.05 (0-0.5) ng/ml Urine Color Urine Appearance (Clear) Urine pH (4.5-7.5) Ur Specific Gaston (1.000-1.030) Urine Protein (Negative) Urine Glucose (UA) (Negative) Urine Ketones (Negative) Urine Blood (Negative) Urine Nitrite (Negative) Urine Bilirubin (Negative) Urine Urobilinogen (Negative) Ur Leukocyte Esterase (Negative) Urine WBC (Auto) (0-5) /hpf Urine RBC (Auto) (0-4) /hpf U Hyaline Cast (Auto) (0-5) /lpf U Epithel Cells (Auto) (0-5) /lpf Urine Bacteria (Auto) (Negative) Amorphous Sediment (None Prsent) Urine Yeast Urine Test (Negative) Urine Opiates Screen (Neg) Ur Methadone, Qual (Neg) Urine Barbiturates (Neg) Ur Phencyclidine (PCP) (Neg) U Amphetamin/Meth Scrn (Neg) MDMA (Ecstasy) Screen (Neg) U Benzodiazepines Scrn (Neg) Ur Cocaine Metabolite (Neg) U Marijuana (THC) Screen (Neg) SARS-CoV-2, RNA, NAAT (NEGATIVE) 11/25/21 11/25/21 11/25/21 Range/Units 10:45 10:45 12:23 WBC (4.8-10.8) K/uL RBC (4.2-5.4) M/uL Hgb (12.0-16.0) g/dL Hct (37-47) % MCV (80-100) fL MCH (25-34) pg MCHC (32-36) g/dL RDW Std Deviation (36.4-46.3) fL RDW Coeff of Nereida (11.5-14.5) % Plt Count (130-400) K/uL MPV (7.4-10.4) fL Immature Gran % (Auto) % Neut % (Auto) % Lymph % (Auto) % Vil[place] % (Auto) % Eos % (Auto) % Baso % (Auto) % Neut # (Auto) (1.4-6.5) K/uL Lymph # (Auto) (1.2-3.4) K/uL Vilas # (Auto) (0.11-0.59) K/uL Eos # (Auto) (0-0.5) K/uL Baso # (Auto) (0-0.2) K/uL Immature Gran # (Auto) (0.00-0.02) K/uL Sodium (136-145) mmol/L Potassium (3.5-5.1) mmol/L Chloride (98-107) mmol/L Carbon Dioxide (21-32) mmol/L Anion Gap (3-11) BUN (6-23) mg/dl Creatinine (0.6-1.2) mg/dl Est Cr Clr Drug Dosing ml/min Est GFR ( Amer) ml/min Est GFR (Non-Af Amer) ml/min BUN/Creatinine Ratio (10-20) Glucose (70-99(Fasting)) mg/dl Calcium (8.5-10.1) mg/dl Total Bilirubin (0.2-1.0) mg/dl AST (13-39) U/L ALT (7-52) U/L Alkaline Phosphatase (34-104) U/L Total Protein (6.0-8.3) gm/dl Albumin (3.4-5.0) gm/dl Globulin (2.5-4.0) gm/dl Albumin/Globulin Ratio (0.9-2) Lipase (11-82) U/L Procalcitonin (0-0.5) ng/ml Urine Color Red Urine Appearance Turbid A (Clear) Urine pH >= 9.0 H (4.5-7.5) Ur Specific Gaston 1.028 (1.000-1.030) Urine Protein 3+ H (Negative) Urine Glucose (UA) Negative (Negative) Urine Ketones 1+ H (Negative) Urine Blood 3+ H (Negative) Urine Nitrite Positive A (Negative) Urine Bilirubin 1+ H (Negative) Urine Urobilinogen Negative (Negative) Ur Leukocyte Esterase 2+ H (Negative) Urine WBC (Auto) >30 H (0-5) /hpf Urine RBC (Auto) 5-10 H (0-4) /hpf U Hyaline Cast (Auto) 1-5 (0-5) /lpf U Epithel Cells (Auto) >30 H (0-5) /lpf Urine Bacteria (Auto) 4+ H (Negative) Amorphous Sediment Present A (None Prsent) Urine Yeast Not Reportable Urine Test Negative (Negative) Urine Opiates Screen Neg (Neg) Ur Methadone, Qual Neg (Neg) Urine Barbiturates Neg (Neg) Ur Phencyclidine (PCP) Neg (Neg) U Amphetamin/Meth Scrn Neg (Neg) MDMA (Ecstasy) Screen Neg (Neg) U Benzodiazepines Scrn Neg (Neg) Ur Cocaine Metabolite Neg (Neg) U Marijuana (THC) Screen Pos H (Neg) SARS-CoV-2, RNA, NAAT (NEGATIVE) 11/25/21 Range/Units 15:20 WBC (4.8-10.8) K/uL RBC (4.2-5.4) M/uL Hgb (12.0-16.0) g/dL Hct (37-47) % MCV (80-100) fL MCH (25-34) pg MCHC (32-36) g/dL RDW Std Deviation (36.4-46.3) fL RDW Coeff of Nereida (11.5-14.5) % Plt Count (130-400) K/uL MPV (7.4-10.4) fL Immature Gran % (Auto) % Neut % (Auto) % Lymph % (Auto) % Vilas % (Auto) % Eos % (Auto) % Baso % (Auto) % Neut # (Auto) (1.4-6.5) K/uL Lymph # (Auto) (1.2-3.4) K/uL Vilas # (Auto) (0.11-0.59) K/uL Eos # (Auto) (0-0.5) K/uL Baso # (Auto) (0-0.2) K/uL Immature Gran # (Auto) (0.00-0.02) K/uL Sodium (136-145) mmol/L Potassium (3.5-5.1) mmol/L Chloride (98-107) mmol/L Carbon Dioxide (21-32) mmol/L Anion Gap (3-11) BUN (6-23) mg/dl Creatinine (0.6-1.2) mg/dl Est Cr Clr Drug Dosing ml/min Est GFR ( Amer) ml/min Est GFR (Non-Af Amer) ml/min BUN/Creatinine Ratio (10-20) Glucose (70-99(Fasting)) mg/dl Calcium (8.5-10.1) mg/dl Total Bilirubin (0.2-1.0) mg/dl AST (13-39) U/L ALT (7-52) U/L Alkaline Phosphatase (34-104) U/L Total Protein (6.0-8.3) gm/dl Albumin (3.4-5.0) gm/dl Globulin (2.5-4.0) gm/dl Albumin/Globulin Ratio (0.9-2) Lipase (11-82) U/L Procalcitonin (0-0.5) ng/ml Urine Color Urine Appearance (Clear) Urine pH (4.5-7.5) Ur Specific Gaston (1.000-1.030) Urine Protein (Negative) Urine Glucose (UA) (Negative) Urine Ketones (Negative) Urine Blood (Negative) Urine Nitrite (Negative) Urine Bilirubin (Negative) Urine Urobilinogen (Negative) Ur Leukocyte Esterase (Negative) Urine WBC (Auto) (0-5) /hpf Urine RBC (Auto) (0-4) /hpf U Hyaline Cast (Auto) (0-5) /lpf U Epithel Cells (Auto) (0-5) /lpf Urine Bacteria (Auto) (Negative) Amorphous Sediment (None Prsent) Urine Yeast Urine Test (Negative) Urine Opiates Screen (Neg) Ur Methadone, Qual (Neg) Urine Barbiturates (Neg) Ur Phencyclidine (PCP) (Neg) U Amphetamin/Meth Scrn (Neg) MDMA (Ecstasy) Screen (Neg) U Benzodiazepines Scrn (Neg) Ur Cocaine Metabolite (Neg) U Marijuana (THC) Screen (Neg) SARS-CoV-2, RNA, NAAT NEGATIVE (NEGATIVE) Imaging Data Radiologist's Impression: Renal Ultrasound 11/25/21 12:19 US renal/blad retro comp CLINICAL HISTORY: flank/abd pain, UTI, vomiting TECHNIQUE: Multiple sonographic real-time images of the kidneys and bladder were obtained. COMPARISON: None available at the time of this dictation. FINDINGS: The right kidney measures 11.1 cm in length, and the left kidney measures 11.3 cm in length. The right kidney is normal in size, contour, cortical thickness, and ech ogenicity. No hydronephrosis is identified. No renal lesion is identified. No perinephric fluid collection is seen. The left kidney is normal in size, contour, cortical thickness and echogenicity. No hydronephrosis is identified. No renal lesion is identified. No perin ephric fluid collection is seen. The bladder is partially distended. No large intraluminal mass is seen. IMPRESSION: Unremarkable examination and in particular no evidence of hydronephrosis. ACT 112: Negative or not required by law. Electronically signed by: Milton Craig M.D. 11/25/2021 1:40 PM Blood Pressure Blood Pressure Findings: Normal blood pressure MDM Narrative This 26-year-old female patient presents to the emergency department today for evaluation of cyclic vomiting. Patient does have a history of the same. She associates the vomiting with anxiety, however does ultimately admit to ongoing marijuana use. The patient has not had a fever. She did have a leukocytosis earlier this week with a white blood cell count of 19,000. Today, this does seem to have improved to 14,000. The patient does appear to have a urinary tract infection. She was medicated with multiple rounds of IV fluids, antiemetics, analgesics. She remained unable to tolerate any p.o. fluids. The patient does not feel comfortable going home given her current state. She will be admitted to the [facility] hospitalist service for ongoing management of her symptoms. Please see hospitalist dictation. The chart was completed utilizing [employer] voice recognition software. Grammatical errors, random word insertions, pronoun errors, and incomplete sentences are an occasional consequence of this system due to software limitations, ambient noise, and hardware issues. Any formal questions or concerns about the content, text, or information contained within the body of this dictation should be directly addressed to the provider for clarification. Impression & Plan Cyclic vomiting syndrome, Intractable nausea and vomiting, Abdominal pain, UTI (urinary tract infection), Marijuana use Discharge Plan Visit Data Chief Complaint: Vomiting Stated Complaint: VOMITING ED Provider: Inocencio Diaz ED Midlevel Provider: Nehal Strong Discharge Problem: Cyclic vomiting syndrome, Intractable nausea and vomiting, Abdominal pain, UTI (urinary tract infection), Marijuana use Patient Disposition: Admitted As Inpatient Forms Stand Alone Forms: My [facility] Prescriptions Prescriptions: No Action nortriptyline 10 mg capsule 10 mg PO DAILY PRN (Reason: ..) RF: 0 Hold Instructions: not taking ondansetron 4 mg tablet,disintegrating 4 mg PO Q6H PRN (Reason: nausea and vomiting) Qty: 30 RF: 0 promethazine 25 mg suppository 25 mg MO Q8H PRN (Reason: nausea and vomiting) Qty: 12 RF: 0 levothyroxine 50 mcg tablet 50 mcg PO DAILY Qty: 90 RF: 3 mecobalamin (vitamin B12) 1,000 mcg tablet,chewable 1,000 mcg PO DAILY Qty: 90 RF: 3 cholecalciferol (vitamin D3) 50 mcg (2,000 unit) capsule 50 mcg PO DAILY Qty: 90 RF: 3 dicyclomine 20 mg tablet 20 mg PO DAILY PRN (Reason: Abdominal Discomfort) RF: 0 lorazepam 1 mg tablet 1 mg PO TID PRN (Reason: anxiety) Qty: 6 RF: 0 famotidine 20 mg tablet 20 mg PO DAILY PRN (Reason: Acid Reflux) RF: 0 acetaminophen [Tylenol Extra Strength] 500 mg Tablet 500 mg PO Q6H PRN (Reason: Pain) RF: 0 Probiotic 10 billion cell Capsule 10,000 mmu cells PO DAILY RF: 0 Metamucil 3.4 gram/5.4 gram Powder 1 tsp PO DAILY RF: 0 Referrals Referrals: Martha Tillman MD [Primary Care Provider] - Discharge Problem: Abdominal pain Qualifiers: Abdominal location: generalized Qualified Code(s): R10.84 - Generalized abdominal pain UTI (urinary tract infection) Qualifiers: Urinary tract infection type: acute cystitis Hematuria presence: with hematuria Qualified Code(s): N30.01 - Acute cystitis with hematuria
[2021-11-25 11:12] LABS: Bilirubin Urine 1+ (Negative); Protein Urine 3+ (Negative)
[2021-11-25 11:26] LABS: Amorphous Sediment Urine Present (None Prsent)
[2021-11-25] MEDS ORDERED: DROPERIDOL 5 MG/2 ML VIAL IV STA ×2 (11:26→12:29)
[2021-11-25] MEDS ORDERED: cefTRIAXone SODIUM 1,000 MG/50 ML BAG IV STA (12:19)
[2021-11-25 13:29] LABS: Amphetamines+Metham, Urine Neg (Neg); Barbiturates, Urine Neg (Neg); Benzodiazepine, Urine Neg (Neg); Cocaine, Urine Neg (Neg); MDMA (Ecstacy), Urine Neg (Neg); Methadone, Urine Neg (Neg); Opiate, Urine Neg (Neg); Phencyclidine, Urine Neg (Neg)
--- NOTE | 2021-11-25 13:43 | Ultrasound Report ---
US renal/blad retro comp CLINICAL HISTORY: flank/abd pain, UTI, vomiting TECHNIQUE: Multiple sonographic real-time images of the kidneys and bladder were obtained. COMPARISON: None available at the time of this dictation. FINDINGS: The right kidney measures 11.1 cm in length, and the left kidney measures 11.3 cm in length. The right kidney is normal in size, contour, cortical thickness, and echogenicity. No hydronephrosis is identified. No renal lesion is identified. No perinephric fluid collection is seen. The left kidney is normal in size, contour, cortical thickness and echogenicity. No hydronephrosis i s identified. No renal lesion is identified. No perinephric fluid collection is seen. The bladder is partially distended. No large intraluminal mass is seen. IMPRESSION: Unremarkable examination and in particular no evidence of hydronephrosis. ACT 112: Negative or not required by law. Electronically signed by: Milton Craig M.D. 11/25/2021 1:40 PM
[2021-11-25] MEDS ORDERED: ACETAMINOPHEN 1,000 MG/100 ML VIAL IV STA (14:00)
[2021-11-25] MEDS ORDERED: CAPSAICIN CR 0.075% 60 GM TUBE EXT STA (15:13)
--- NOTE | 2021-11-25 16:11 | History & Physical Report ---
Date of Service November 25, 2021 Assessment & Plan (1) Cyclic vomiting syndrome: Plan: Presents with recurrent episode of severe cyclic vomiting syndrome Reports last marijuana use was 1 month ago but urine drug screen again positive for marijuana which is possible with previous long-term daily use of marijuana, but seems more likely that she has more recently used marijuana With UTI although she is not having any urinary symptoms. hCG is negative. Renal ultrasound here negative for hydronephrosis which makes kidney stone not likely CT abdomen/pelvis on 11/23 without acute findings Covid-19 test negative She has tried capsaicin in the past which caused severe burning of the skin and she declines to try it again She does report that lorazepam has helped her in the past and it was prescribed by the GI specialist in [place] that she sees Still vomiting after receiving multiple antiemetics and IV fluids in the ER -Bring in on observation -Keep n.p.o. except ice chips and sips for now, advance diet as tolerated -Continue IV fluids with normal saline at 125 mL's per hour -Continue Zofran, Compazine, Reglan with Benadryl as needed -Start Protonix 40 mg IV once daily -Give IV Tylenol as needed for pain -Give IV lorazepam as needed for anxiety and/or nausea -Hot showers allowed -Follow BMP and CBC in the morning, magnesium and phosphorus and replace electrolytes as needed (2) Hypokalemia: Plan: Secondary to GI losses and poor p.o. intake Replace with 20 mEq of IV potassium chloride Follow BMP and magnesium in the morning (3) Anxiety disorder: Plan: She has upcoming plans to start meeting with a psychologist for counseling In the meantime, lorazepam as needed was suggested by the GI specialist as anxiety plays a role with cyclic vomiting syndrome Would also suggest seeing psychiatry or PCP to start on SSRI (4) Vitamin B12 deficiency: Plan: Hold home B12 for now while vomiting (5) Abnormal TSH: Plan: Was abnormal in the past was started on levothyroxine, last TSH in 10/2021 is normal Continue home levothyroxine if can tolerate p.o. in the morning (6) Vitamin D deficiency: Plan: Hold home vitamin D while vomiting Plan: DVT prophylaxis-SCDs Disposition-bring in on observation, hopeful for discharge home tomorrow if tolerating p.o. History of Present Illness Chief Complaint: Nausea/vomiting Primary Care Provider: Martha Tillman MD This patient is a 26-year-old female with a history of cyclic vomiting syndrome, myofascial pain syndrome, marijuana abuse, hypothyroidism, B12 deficiency, vitamin D deficiency who presents to the ER for persistent nausea/vomiting similar to prior episodes of cyclic vomiting syndrome requiring hospitalization. She reports since her hospitalization in 08/2021, her epigastric abdominal pain and nausea have been intermittent, but she has been able to manage at home with oral Zofran. She was seen by pain management and was given steroid injections for trigger points in the abdomen but this did not help. She saw a GI motility specialist in [place] and was told that she needed to have her anxiety disorder addressed and was not to take nortriptyline anymore as suggested by pain management. This episode started about 3 days ago and she has been unable to keep much down in the last 3 days. She was seen in the ER in the first day and was given droperidol, Reglan, Benadryl, Zofran, and IV fluids as well as fentanyl and had relief and was able to go home. She denies any blood in her vomit. Her last bowel movement was 3 days ago. She denies any fevers or chills, no headache or lightheadedness. She denies urinary frequency/dysuria/urgency. In the ER, she was given IV fluids, IV Reglan and Benadryl, IV Pepcid, Toradol, droperidol, and IV Tylenol in the ER without relief. She had a leukocytosis and mild hypokalemia, marijuana positive on urine drug screen, but otherwise vitals and labs were stable. hCG negative. Renal ultrasound normal. She was found to have a UTI and given ceftriaxone. She will be brought in on observation for intractable nausea/vomiting. Allergies Allergy/AdvReac Type Severity Reaction Status Date / Time Sulfa (Sulfonamide Allergy Unknown UNKNOWN Verified 11/25/21 10:46 Antibiotics) Home Medications Medication Instructions Recorded Confirmed Type cholecalciferol (vitamin D3) 50 50 mcg PO DAILY #90 cap 10/12/20 11/25/21 Rx mcg (2,000 unit) capsule mecobalamin (vitamin B12) 1,000 1,000 mcg PO DAILY #90 tab 10/12/20 11/25/21 Rx mcg chewable tablet dicyclomine 20 mg tablet 20 mg PO DAILY PRN 12/08/21 03/25/22 History lorazepam 1 mg tablet 1 mg PO TID PRN #6 tab 08/10/21 11/25/21 Rx famotidine 20 mg tablet 20 mg PO DAILY PRN 09/26/21 11/25/21 History nortriptyline 10 mg capsule 10 mg PO DAILY PRN cap 09/26/21 11/25/21 History levothyroxine 50 mcg tablet 50 mcg PO DAILY #90 tab 10/14/21 11/25/21 Rx ondansetron 4 mg disintegrating 4 mg PO Q6H PRN #30 tab 11/08/21 11/25/21 Rx tablet promethazine 25 mg rectal 25 mg TN Q8H PRN #12 ea 11/08/21 11/25/21 Rx suppository Lactobacillus acidophilus 10 10,000 mmu cells PO DAILY 11/25/21 11/25/21 History billion cell capsule (Probiotic) acetaminophen 500 mg tablet 500 mg PO Q6H PRN 11/25/21 11/25/21 History (Tylenol Extra Strength) psyllium husk 3.4 gram/5.4 gram 1 tsp PO DAILY 11/25/21 11/25/21 History oral powder (Metamucil) Past Med/Surg History Medical History Abdominal wall pain Anxiety disorder Cyclic vomiting syndrome Headache Hypokalemia Nausea and vomiting Screen for STD (sexually transmitted disease) Vaginal discharge Surgical History H/O oral surgery Family History Grandfather (Paternal) Colorectal cancer Father Hypertension Thyroid cancer Stroke Grandmother (Maternal) Diabetes Other Breast cancer Cyclic vomiting syndrome Denies family history of Ovarian cancer Prostate cancer Myocardial infarction Social History Smoking Status: Current every day smoker Tobacco Type: E-cigarettes / Vaping Cigarettes Per Day: 1 pack every 3days; Hx Alcohol Use: Yes Hx Substance Use: Yes Last Used Substance: Days (ago) Last Used Substance Other:: 3 weeks ago Preferred Language: Malay Communication Ability: Effective Visual Impairment: No Limitations Hearing Ability: Normal Vice President Integrated Required: No Beliefs That Will Affect Care: None marital status: Single Current Living Situation: Parent current occupational status: employed current occupation: [employer] How many Children do You have: 0 Feels Safe at Home: Yes Safety Concerns: Feels Safe At This Time Dental Care, Regularly: Yes Physical Activity Frequency: 1-2 Times per Week Seatbelt Use: always Sunscreen Use: Yes Assistive Devices: None Review of Systems Review of Systems: All systems reviewed & are unremarkable except as noted in HPI & below Physical Exam Constitutional: WD/WN, vitals as above Eyes: + anicteric sclerae ENMT: external ear and nose normal, oropharynx normal Neck: trachea midline, no thyromegaly Respiratory: normal respiratory effort, lungs clear to auscultation Cardiovascular: RRR, no murmur, no edema Chest (Breasts): Chest: normal inspection of chest Gastrointestinal (Abdomen): Inspection/Auscultation: abdomen normal to inspection and normal bowel sounds; abdomen not distended Percussion/Palpation: + abdomen tender (Diffusely but without guarding or rebound tenderness) and abdomen soft Musculoskeletal: Extremities: extremities normal to inspection; no cyanosis and no clubbing Skin: no rashes, warm and dry Neurologic: moves all extremities and awake; no focal motor deficits Psychiatric: A+Ox3, euthymic affect Lymphatic: no lymphedema Results & Data Results & Data ([facility]) Vital Signs (Past 12 Hours) Vital Signs Temp Pulse Pulse Resp BP Pulse Ox 11/25/21 14:16 75 20 126/63 97 11/25/21 10:51 73 20 100 11/25/21 10:48 73 20 100 11/25/21 09:58 37.3 C 79 18 99 Laboratory Results 11/25/21 11/25/21 11/25/21 Range/Units 15:20 12:23 12:23 WBC (4.8-10.8) K/uL RBC (4.2-5.4) M/uL Hgb (12.0-16.0) g/dL Hct (37-47) % MCV (80-100) fL MCH (25-34) pg MCHC (32-36) g/dL RDW Std Deviation (36.4-46.3) fL RDW Coeff of [place] (11.5-14.5) % Plt Count (130-400) K/uL MPV (7.4-10.4) fL Immature Gran % (Auto) % Neut % (Auto) % Lymph % (Auto) % Pope % (Auto) % Eos % (Auto) % Baso % (Auto) % Neut # (Auto) (1.4-6.5) K/uL Lymph # (Auto) (1.2-3.4) K/uL Pope # (Auto) (0.11-0.59) K/uL Eos # (Auto) (0-0.5) K/uL Baso # (Auto) (0-0.2) K/uL Immature Gran # (Auto) (0.00-0.02) K/uL Sodium (136-145) mmol/L Potassium (3.5-5.1) mmol/L Chloride (98-107) mmol/L Carbon Dioxide (21-32) mmol/L Anion Gap (3-11) BUN (6-23) mg/dl Creatinine (0.6-1.2) mg/dl Est Cr Clr Drug Dosing ml/min Est GFR ( Amer) ml/min Est GFR (Non-Af Amer) ml/min BUN/Creatinine Ratio (10-20) Glucose (70-99(Fasting)) mg/dl Calcium (8.5-10.1) mg/dl Total Bilirubin (0.2-1.0) mg/dl AST (13-39) U/L ALT (7-52) U/L Alkaline Phosphatase (34-104) U/L Total Protein (6.0-8.3) gm/dl Albumin (3.4-5.0) gm/dl Globulin (2.5-4.0) gm/dl Albumin/Globulin Ratio (0.9-2) Lipase (11-82) U/L Procalcitonin (0-0.5) ng/ml Urine Color Urine Appearance (Clear) Urine pH (4.5-7.5) Ur Specific [place] (1.000-1.030) Urine Protein (Negative) Urine Glucose (UA) (Negative) Urine Ketones (Negative) Urine Blood (Negative) Urine Nitrite (Negative) Urine Bilirubin (Negative) Urine Urobilinogen (Negative) Ur Leukocyte Esterase (Negative) Urine WBC (Auto) (0-5) /hpf Urine RBC (Auto) (0-4) /hpf U Hyaline Cast (Auto) (0-5) /lpf U Epithel Cells (Auto) (0-5) /lpf Urine Bacteria (Auto) (Negative) Amorphous Sediment (None Prsent) Urine Yeast Urine Test (Negative) Urine Opiates Screen Neg (Neg) Ur Methadone, Qual Neg (Neg) Urine Barbiturates Neg (Neg) Ur Phencyclidine (PCP) Neg (Neg) U Amphetamin/Meth Scrn Neg (Neg) MDMA (Ecstasy) Screen Neg (Neg) U Benzodiazepines Scrn Neg (Neg) Ur Cocaine Metabolite Neg (Neg) U Marijuana (THC) Screen Pos H (Neg) U Marijuana THC Carboxy Pending Drug Screen Comment Pending SARS-CoV-2, RNA, NAAT NEGATIVE (NEGATIVE) 11/25/21 11/25/21 11/25/21 Range/Units 10:45 10:45 10:19 WBC (4.8-10.8) K/uL RBC (4.2-5.4) M/uL Hgb (12.0-16.0) g/dL Hct (37-47) % MCV (80-100) fL MCH (25-34) pg MCHC (32-36) g/dL RDW Std Deviation (36.4-46.3) fL RDW Coeff of [place] (11.5-14.5) % Plt Count (130-400) K/uL MPV (7.4-10.4) fL Immature Gran % (Auto) % Neut % (Auto) % Lymph % (Auto) % Pope % (Auto) % Eos % (Auto) % Baso % (Auto) % Neut # (Auto) (1.4-6.5) K/uL Lymph # (Auto) (1.2-3.4) K/uL Pope # (Auto) (0.11-0.59) K/uL Eos # (Auto) (0-0.5) K/uL Baso # (Auto) (0-0.2) K/uL Immature Gran # (Auto) (0.00-0.02) K/uL Sodium (136-145) mmol/L Potassium (3.5-5.1) mmol/L Chloride (98-107) mmol/L Carbon Dioxide (21-32) mmol/L Anion Gap (3-11) BUN (6-23) mg/dl Creatinine (0.6-1.2) mg/dl Est Cr Clr Drug Dosing ml/min Est GFR ( Amer) ml/min Est GFR (Non-Af Amer) ml/min BUN/Creatinine Ratio (10-20) Glucose (70-99(Fasting)) mg/dl Calcium (8.5-10.1) mg/dl Total Bilirubin (0.2-1.0) mg/dl AST (13-39) U/L ALT (7-52) U/L Alkaline Phosphatase (34-104) U/L Total Protein (6.0-8.3) gm/dl Albumin (3.4-5.0) gm/dl Globulin (2.5-4.0) gm/dl Albumin/Globulin Ratio (0.9-2) Lipase (11-82) U/L Procalcitonin < 0.05 (0-0.5) ng/ml Urine Color Red Urine Appearance Turbid A (Clear) Urine pH >= 9.0 H (4.5-7.5) Ur Specific [place] 1.028 (1.000-1.030) Urine Protein 3+ H (Negative) Urine Glucose (UA) Negative (Negative) Urine Ketones 1+ H (Negative) Urine Blood 3+ H (Negative) Urine Nitrite Positive A (Negative) Urine Bilirubin 1+ H (Negative) Urine Urobilinogen Negative (Negative) Ur Leukocyte Esterase 2+ H (Negative) Urine WBC (Auto) >30 H (0-5) /hpf Urine RBC (Auto) 5-10 H (0-4) /hpf U Hyaline Cast (Auto) 1-5 (0-5) /lpf U Epithel Cells (Auto) >30 H (0-5) /lpf Urine Bacteria (Auto) 4+ H (Negative) Amorphous Sediment Present A (None Prsent) Urine Yeast Not Reportable Urine Test Negative (Negative) Urine Opiates Screen (Neg) Ur Methadone, Qual (Neg) Urine Barbiturates (Neg) Ur Phencyclidine (PCP) (Neg) U Amphetamin/Meth Scrn (Neg) MDMA (Ecstasy) Screen (Neg) U Benzodiazepines Scrn (Neg) Ur Cocaine Metabolite (Neg) U Marijuana (THC) Screen (Neg) U Marijuana THC Carboxy Drug Screen Comment SARS-CoV-2, RNA, NAAT (NEGATIVE) 11/25/21 11/25/21 Range/Units 10:19 10:19 WBC 14.60 H (4.8-10.8) K/uL RBC 4.44 (4.2-5.4) M/uL Hgb 13.8 (12.0-16.0) g/dL Hct 39.9 (37-47) % MCV 89.9 (80-100) fL MCH 31.1 (25-34) pg MCHC 34.6 (32-36) g/dL RDW Std Deviation 43.4 (36.4-46.3) fL RDW Coeff of [place] 13.2 (11.5-14.5) % Plt Count 241 (130-400) K/uL MPV 12.5 H (7.4-10.4) fL Immature Gran % (Auto) 0.1 % Neut % (Auto) 85.9 % Lymph % (Auto) 7.6 % Pope % (Auto) 6.1 % Eos % (Auto) 0.2 % Baso % (Auto) 0.1 % Neut # (Auto) 12.53 H (1.4-6.5) K/uL Lymph # (Auto) 1.11 L (1.2-3.4) K/uL Pope # (Auto) 0.89 H (0.11-0.59) K/uL Eos # (Auto) 0.03 (0-0.5) K/uL Baso # (Auto) 0.02 (0-0.2) K/uL Immature Gran # (Auto) 0.02 (0.00-0.02) K/uL Sodium 138 (136-145) mmol/L Potassium 3.3 L (3.5-5.1) mmol/L Chloride 102 (98-107) mmol/L Carbon Dioxide 22 (21-32) mmol/L Anion Gap 14 H (3-11) BUN 15 (6-23) mg/dl Creatinine 0.81 (0.6-1.2) mg/dl Est Cr Clr Drug Dosing 110.9 ml/min Est GFR ( Amer) 115.4 ml/min Est GFR (Non-Af Amer) 99.5 ml/min BUN/Creatinine Ratio 18.5 (10-20) Glucose 121 H (70-99(Fasting)) mg/dl Calcium 9.8 (8.5-10.1) mg/dl Total Bilirubin 0.7 (0.2-1.0) mg/dl AST 27 (13-39) U/L ALT 29 (7-52) U/L Alkaline Phosphatase 36 (34-104) U/L Total Protein 8.0 (6.0-8.3) gm/dl Albumin 4.8 (3.4-5.0) gm/dl Globulin 3.2 (2.5-4.0) gm/dl Albumin/Globulin Ratio 1.5 (0.9-2) Lipase 13 (11-82) U/L Procalcitonin (0-0.5) ng/ml Urine Color Urine Appearance (Clear) Urine pH (4.5-7.5) Ur Specific [place] (1.000-1.030) Urine Protein (Negative) Urine Glucose (UA) (Negative) Urine Ketones (Negative) Urine Blood (Negative) Urine Nitrite (Negative) Urine Bilirubin (Negative) Urine Urobilinogen (Negative) Ur Leukocyte Esterase (Negative) Urine WBC (Auto) (0-5) /hpf Urine RBC (Auto) (0-4) /hpf U Hyaline Cast (Auto) (0-5) /lpf U Epithel Cells (Auto) (0-5) /lpf Urine Bacteria (Auto) (Negative) Amorphous Sediment (None Prsent) Urine Yeast Urine Test (Negative) Urine Opiates Screen (Neg) Ur Methadone, Qual (Neg) Urine Barbiturates (Neg) Ur Phencyclidine (PCP) (Neg) U Amphetamin/Meth Scrn (Neg) MDMA (Ecstasy) Screen (Neg) U Benzodiazepines Scrn (Neg) Ur Cocaine Metabolite (Neg) U Marijuana (THC) Screen (Neg) U Marijuana THC Carboxy Drug Screen Comment SARS-CoV-2, RNA, NAAT (NEGATIVE) Diagnostic Findings Renal Ultrasound 11/25/21 12:19 US renal/blad retro comp CLINICAL HISTORY: flank/abd pain, UTI, vomiting TECHNIQUE: Multiple sonographic real-time images of the kidneys and bladder were obtained. COMPARISON: None available at the time of this dictation. FINDINGS: The right kidney measures 11.1 cm in length, and the left kidney measures 11.3 cm in length. The right kidney is normal in size, contour, cortical thickness, and echogenicity. No hydronephrosis is identified. No renal lesion is identified. No perinephric fluid collection is seen. The left kidney is normal in size, contour, cortical thickness and echogenicity. No hydronephrosis is identified. No renal lesion is identified. No perinephric fluid collection is seen. The bladder is partially distended. No large intraluminal mass is seen. IMPRESSION: Unremarkable examination and in particular no evidence of hydronephrosis. ACT 112: Negative or not required by law. Electronically signed by: Milton Craig M.D. 11/25/2021 1:40 PM Code Status & VTE Plan Code Status Full code VTE Prophylaxis Plan VTE Prophylaxis will be ordered: Yes PG Care Time/CCT Total # of Minutes Spent Total Time Spent with Patient: Total time spent is greater than 50% in coordination of care (as documented) at patient's floor/unit and/or counseling patient: Coding Level of Care Code INT OBSERVATION CARE 70M LVL 3 Diagnoses Anxiety disorder F41.9 Cyclic vomiting syndrome R11.15 Vitamin B12 deficiency E53.8 Abnormal TSH R79.89 Vitamin D deficiency E55.9 Hypokalemia E87.6
[2021-11-25] MEDS: POTASSIUM CHLORIDE / WTR 10 MEQ/100 ML PLCT IV SCH ×2 (16:42→19:27)
[2021-11-25] MEDS ORDERED: LORazepam 2 MG/1 ML VIAL IV PRN (18:21)
[2021-11-25] MEDS ORDERED: PROCHLORPERAZINE 10 MG in SYRINGE 8 ML IV PRN (18:21)
[2021-11-25] MEDS ORDERED: diphenhydrAMINE 50 MG/ML VIAL IV PRN (18:21)
[2021-11-25] MEDS ORDERED: METOCLOPRAMIDE HCL INJ 5 MG/ML 2 ML VIAL IV PRN (18:21)
[2021-11-25] MEDS ORDERED: ACETAMINOPHEN 1000 MG/100 ML IV IV PRN (18:21)
[2021-11-25] MEDS: SODIUM CHLORIDE 0.9% 1000ML 1,000 ML IV SCH (19:27)
[2021-11-25] MEDS: ONDANSETRON INJ 2 MG/ML 2 ML VIAL IV PRN (19:55)
[2021-11-26] MEDS: SODIUM CHLORIDE 0.9% 1000ML 1,000 ML IV SCH ×2 (04:39→10:44)
[2021-11-26] MEDS ORDERED: FAMOTIDINE 20 MG TAB PO SCH (06:15)
[2021-11-26 06:29] LABS: Basophils # (auto) 0.01 K/uL (0-0.2); Basophils % (auto) 0.1 %; Eosinophils # (auto) 0.01 K/uL (0-0.5); Eosinophils % (auto) 0.1 %; Hematocrit (blood only) 38.4 % (37-47); Hemoglobin 13.2 g/dL (12.0-16.0); Immature Granulocytes # (auto) 0.02 K/uL (0.00-0.02); Immature Granulocytes % (auto) 0.2 %; Lymphocytes # (auto) 1.36 K/uL (1.2-3.4); Lymphocytes % (auto) 12.2 %; Mean Corpuscular Hemoglobin 31.1 pg (25-34); Mean Corpuscular Hgb Conc 34.4 g/dL (32-36); Mean Corpuscular Volume 90.6 fL (80-100); Monocytes # (auto) 0.82 K/uL (0.11-0.59); Monocytes % (auto) 7.4 %; Platelet Count 231 K/uL (130-400); RDW Coefficient of Variation 13.2 % (11.5-14.5); RDW Standard Deviation 43.6 fL (36.4-46.3); Red Blood Count 4.24 M/uL (4.2-5.4); White Blood Count 11.12 K/uL (4.8-10.8)
[2021-11-26] MEDS ORDERED: LEVOTHYROXINE SODIUM 50 MCG TABLET PO SCH (06:30)
[2021-11-26 06:58] LABS: Albumin Globulin Ratio 1.5 (0.9-2); Albumin Level 4.5 gm/dl (3.4-5.0); Bilirubin,Total 0.8 mg/dl (0.2-1.0); Calcium 8.8 mg/dl (8.5-10.1); Creatinine Clr Calc Pharmacy 148.7 ml/min; Est GFR (African American) 144.8 ml/min; Est GFR (Non-African American) 124.9 ml/min; Magnesium 1.9 mg/dl (1.7-2.4); Phosphorus 2.3 mg/dl (2.5-4.9); Potassium 3.2 mmol/L (3.5-5.1); Total Protein 7.5 gm/dl (6.0-8.3)
[2021-11-26] MEDS: ACETAMINOPHEN 500 MG TAB PO PRN ×2 (08:43→14:40)
[2021-11-26] MEDS ORDERED: cefTRIAXone SODIUM 2,000 MG in DEXTROSE 5% 50 ML IV SCH (09:00)
[2021-11-26] MEDS: POTASSIUM CHLORIDE / WTR 10 MEQ/100 ML PLCT IV SCH ×2 (10:44→12:38)
[2021-11-26] MEDS ORDERED: PANTOprazole 40 MG in SYRINGE 0 ML IV SCH (11:00)
[2021-11-26] MEDS: ONDANSETRON INJ 2 MG/ML 2 ML VIAL IV PRN (14:41)
--- NOTE | 2021-11-26 16:03 | Discharge Summary ---
Date of Service November 26, 2021 Admission HPI Per Admitting Provider This patient is a 26-year-old female with a history of cyclic vomiting syndrome, myofascial pain syndrome, marijuana abuse, hypothyroidism, B12 deficiency, vitamin D deficiency who presents to the ER for persistent nausea/vomiting similar to prior episodes of cyclic vomiting syndrome requiring hospitalization. She reports since her hospitalization in 08/2021, her epigastric abdominal pain and nausea have been intermittent, but she has been able to manage at home with oral Zofran. She was seen by pain management and was given steroid injections for trigger points in the abdomen but this did not help. She saw a GI motility specialist in [place] and was told that she needed to have her anxiety disorder addressed and was not to take nortriptyline anymore as suggested by pain management. This episode started about 3 days ago and she has been unable to keep much down in the last 3 days. She was seen in the ER in the first day and was given droperidol, Reglan, Benadryl, Zofran, and IV fluids as well as fentanyl and had relief and was able to go home. She denies any blood in her vomit. Her last bowel movement was 3 days ago. She denies any fevers or chills, no headache or lightheadedness. She denies urinary frequency/dysuria/urgency. In the ER, she was given IV fluids, IV Reglan and Benadryl, IV Pepcid, Toradol, droperidol, and IV Tylenol in the ER without relief. She had a leukocytosis and mild hypokalemia, marijuana positive on urine drug screen, but otherwise vitals and labs were stable. hCG negative. Renal ultrasound normal. She was found to have a UTI and given ceftriaxone. She will be brought in on observation for intractable nausea/vomiting. Principal Diagnosis Cyclic vomiting syndrome, hypokalemia, UTI Discharge Exam Constitutional WD/WN, vitals as above Eyes + anicteric sclerae ENMT external ear and nose normal, oropharynx normal Neck trachea midline, no thyromegaly Respiratory normal respiratory effort, lungs clear to auscultation Cardiovascular RRR, no murmur, no edema Chest (Breasts) Chest: normal inspection of chest Gastrointestinal (Abdomen) Inspection/Auscultation: abdomen normal to inspection and normal bowel sounds; abdomen not distended Percussion/Palpation: abdomen soft; abdomen nontender and no guarding Musculoskeletal Extremities: extremities normal to inspection; no cyanosis and no clubbing Skin no rashes, warm and dry Neurologic moves all extremities and awake; no focal motor deficits Psychiatric A+Ox3, euthymic affect Lymphatic no lymphedema Discharge Data Allergies Allergy/AdvReac Type Severity Reaction Status Date / Time Sulfa (Sulfonamide Allergy Unknown UNKNOWN Verified 11/25/21 10:46 Antibiotics) Consultations 11/25/21 15:16 ED Decision to Admit Stat Ordered Studies 11/25/21 12:19 US renal/blad retro comp Stat Hospital Course (1) Cyclic vomiting syndrome: Presents with recurrent episode of severe cyclic vomiting syndrome Reports last marijuana use was 1 month ago but urine drug screen again positive for marijuana which is possible with previous long-term daily use of marijuana, but seems more likely that she has more recently used marijuana With UTI although she is not having any urinary symptoms. hCG is negative. Renal ultrasound here negative for hydronephrosis which makes kidney stone not likely CT abdomen/pelvis on 11/23 without acute findings Covid-19 test negative She has tried capsaicin in the past which caused severe burning of the skin and she declines to try it again She does report that lorazepam has helped her in the past and it was prescribed by the GI specialist in [place] that she sees She was brought in on observation and given IV fluids, Zofran, Compazine -Start Protonix 40 mg once daily and continue for 1 month after discharge -She was given IV Tylenol as needed for pain She can take lorazepam as needed for anxiety and/or nausea-gave 6 tablets for discharge -Hot showers were allowed Potassium remains mildly low on the day of discharge but was replaced with IV potassium She was improved and her diet was advanced and she tolerated it without further vomiting and was discharged home in good condition Advised follow-up with psychiatry and psychology to address her anxiety which plays a role in stimulating her cyclic vomiting syndrome (2) Hypokalemia: Secondary to GI losses and poor p.o. intake Replaced (3) Anxiety disorder: She has upcoming plans to start meeting with a psychologist for counseling In the meantime, lorazepam as needed was suggested by the GI specialist as anxiety plays a role with cyclic vomiting syndrome Would also suggest seeing psychiatry or PCP to start on SSRI (4) Vitamin B12 deficiency: Continue vitamin B12 (5) Abnormal TSH: Was abnormal in the past was started on levothyroxine, last TSH in 10/2021 is normal Continue home levothyroxine (6) Vitamin D deficiency: Continue home vitamin D supplementation DVT prophylaxis-SCDs Disposition-stable for discharge home Total Time Total Time Spent Total Time Spent (In Minutes): 35 minutes Discharge Plan Discharge Items Patient Disposition: Home - Self-Care Reason For Visit: NAUSEA/VOMITING Discharge Diagnosis: Cyclic vomiting syndrome UTI Condition on Discharge: Good Activity: Resume your previous activity Non-emergency contact: Primary Care Provider and [employer] Call non-emergency contact if: you have any medication questions, your symptoms worsen, your pain is not controlled and your pain is worsening Follow-up/Referrals: Martha Tillman MD [Primary Care Provider] - (Follow up within 1-2 weeks after discharge ) Diet: Regular Addtl Attending Provider Instructions: You are admitted with an episode of intractable nausea and vomiting secondary to your cyclical vomiting syndrome. This did improve with antiemetics and IV fluids. You can continue to take either Zofran, Phenergan, or the lorazepam as needed for nausea. The lorazepam can also be used sparingly as needed for anxiety. You were also started on pantoprazole which is an antacid-please continue to take this once a day for the next month to reduce acid in the stomach that may contribute to vomiting. As we discussed, please schedule an appointment with the therapist to discuss coping mechanisms for anxiety. I also would highly recommend that you start on medication for anxiety that is to be taken on a daily basis. Please discuss this with your primary care physician or set up an appointment with a psychiatrist that is able to prescribe medicine. [facility] in [place] is a medical practice that can provide psychiatry services. You were also found to have a urinary tract infection. The urine culture was still pending at the time of discharge, however you can take cephalexin twice a day for 1 more day to complete a 3-day course of antibiotics for this. Pending Studies at Discharge: Yes (Urine culture) Stand-Alone Forms: [employer], Smoking Cessation Medications and DC Order Prescriptions: New promethazine 25 mg tablet 25 mg PO TID PRN (Reason: nausea and vomiting) Qty: 21 RF: 0 pantoprazole [Protonix] 40 mg tablet,delayed release (DR/EC) 40 mg PO DAILY Qty: 30 RF: 0 cephalexin 500 mg capsule 500 mg PO BID Qty: 2 RF: 0 Continued promethazine 25 mg suppository 25 mg SD Q8H PRN (Reason: nausea and vomiting) Qty: 12 RF: 0 levothyroxine 50 mcg tablet 50 mcg PO DAILY Qty: 90 RF: 3 mecobalamin (vitamin B12) 1,000 mcg tablet,chewable 1,000 mcg PO DAILY Qty: 90 RF: 3 cholecalciferol (vitamin D3) 50 mcg (2,000 unit) capsule 50 mcg PO DAILY Qty: 90 RF: 3 dicyclomine 20 mg tablet 20 mg PO DAILY PRN (Reason: Abdominal Discomfort) RF: 0 famotidine 20 mg tablet 20 mg PO DAILY PRN (Reason: Acid Reflux) RF: 0 acetaminophen [Tylenol Extra Strength] 500 mg Tablet 500 mg PO Q6H PRN (Reason: Pain) RF: 0 Probiotic 10 billion cell Capsule 10,000 mmu cells PO DAILY RF: 0 Metamucil 3.4 gram/5.4 gram Powder 1 tsp PO DAILY RF: 0 lorazepam 1 mg tablet 1 mg PO TID PRN (Reason: anxiety) Qty: 6 RF: 0 ondansetron 4 mg tablet,disintegrating 4 mg PO Q6H PRN (Reason: nausea and vomiting) Qty: 30 RF: 0 Discontinued nortriptyline 10 mg capsule 10 mg PO DAILY PRN (Reason: ..) RF: 0 Hold Instructions: not taking Discharge Orders: Discharge Order (Routine); Ordered 11/26/21 Ordered By: Beverley Santoyo/Other Patient Handouts: Cyclic Vomiting Syndrome Admission Data Admit Date/Time: 11/25/21 16:43 Attending Provider: Beverley Villanueva Admit Provider: Beverley Villanueva Primary Care Provider: Martha Tillman V. Other Providers: Beverley Villanueva Coding Level of Care Code 12921 OBS Care - Discharge Diagnoses Cyclic vomiting syndrome R11.15 Hypokalemia E87.6 Anxiety disorder F41.9 Vitamin B12 deficiency E53.8 Abnormal TSH R79.89 Vitamin D deficiency E55.9
[2021-11-27 08:31] LABS: Marijuana Quant, GCMS Urine 2462 ng/mL (<5)
== END 2021-11-26 17:03 | disposition home or self-care (01) ==
LOC: ED 09:51 → 3E 09:51